=== PATIENT | male | born 1960 | race Two or more races ===

== ENCOUNTER 2020-09-25 12:50 | Emergency (ER) | payer OTHER, SELFPAY ==
[2020-09-25 13:05] VITALS: BP 131/98; PULSE 100; RESP 18; TEMP 37.4; O2SAT 96; BMI 33.0
--- NOTE | 2020-09-25 13:11 | XR_ITS ---
EXAMINATION: XR LUMBOSACRAL SPINE CLINICAL INFORMATION: Low back pain COMPARISON: Radiographs lumbar spine 04/14/2017 TECHNIQUE: Three views of the lumbosacral spine. FINDINGS: There is normal lumbar segmentation with 5 nonrib-bearing lumbar vertebrae of normal height and normal lumbar lordosis. There is no interval vertebral compression, spondylolisthesis, destructive process. There are moderate degenerative disc changes again seen T12-L1 with disc narrowing and endplate sclerosis and vertebral spurring. There is borderline disc narrowing L4-L5 and probable mild facet degeneration lumbosacral junction. The SI joints and visualized sacrum are unremarkable. XR/XR lumbar spine 2-3V IMPRESSION: 1. Moderate degenerative disc changes T12-L1 similar to 2017. 2. Borderline disc narrowing L4-L5. Probable mild facet degeneration L5-S1.
--- NOTE | 2020-09-25 14:09 | ED_ITS ---
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 Pain is described as aching like with aggravating factors including movement and certain positions with alleviating factors including rest and immobilization. He denies any GI symptoms. No fever. No abdominal pain. No chest pain or shortness of breath. No headache, neck pain, fever or chills. MD elicited complaint: back pain Pertinent past history: prior back pain Onset (ago): day(s) Severity: mild Similar Symptoms Previously: Yes Quality: aching Location: right lower back Radiation: none Exacerbating factors: movement Relieving factors: immobilization Associated symptoms: denies other symptoms Treatments prior to arrival: cold therapy Work related injury: No Related Data Previous Rx's Medication Instructions Recorded amoxicillin 875 mg-potassium 1 tab PO BID #20 tab 07/28/20 clavulanate 125 mg tablet cyclobenzaprine 5 mg PO TID PRN #20 tab 09/25/20 ibuprofen 800 mg PO Q8H PRN #30 tab 09/25/20 lidocaine 1 patch TOPICAL Q24H PRN 7 Days 09/25/20 #10 ea Allergies Allergy/AdvReac Type Severity Reaction Status Date / Time No Known Allergies Allergy Verified 07/28/20 09:51 [No Known Allergies*] none Allergy Unknown unknown Uncoded 07/28/20 09:51 Review of Systems Review of Systems: Constitutional: No Weight loss, No Fever, No Chills, No Night Sweats, No Fatigue, No Malaise ENT/Mouth: No Nasal Congestion, No Sinus Pain, No Hoarseness, No sore throat, No Rhinorrhea, No Swallowing Difficulty Eyes: No Eye Pain, No Swelling, No Redness, No Foreign Body, No Discharge, No Vision Changes Cardiovascular: No Chest Pain, No SOB, No Dyspnea on Exertion, No Orthopnea, No Edema, No Palpitations Respiratory: No Cough, No Sputum, No Wheezing, No Dyspnea Gastrointestinal: No Nausea, No Vomiting, No Diarrhea, No Constipation, No abdominal Pain, No Hematochezia, No Melena Genitourinary: no irregular bleeding, No Dysuria, No Urinary Frequency, No Hematuria, No Urinary Incontinence, No Urgency, No Flank Pain Musculoskeletal: as noted in HPI Skin: No Skin Lesions, No rash Neuro: No Weakness, No Numbness, No Paresthesias, No Loss of Consciousness, No Dizziness, No Headache Psych: No Social Issues Heme/Lymph: No Bruising, No Bleeding,No Lymphadenopathy Endocrine: No Polyuria, No Polydipsia, No Temperature Intolerance [facility] Social History Social History Advance Directives: No Advance Directives Information Provided: No Physical Exam Vital Signs: Vital Signs: Last Vital Signs Temp 99.3 F 09/25/20 13:05 Pulse 100 09/25/20 13:05 Resp 18 09/25/20 13:05 BP 131/98 H 09/25/20 13:05 Pulse Ox 96 09/25/20 13:05 Body Mass Index 33.0 Reviewed Const: General: cooperative and healthy appearing; No acute distress or intoxicated appearing Nutritional Appearance: average body habitus Orientation/consciousness: patient oriented x3 HENMT: Head: Yes normal to inspection Ears: hearing grossly normal bilaterally Eyes: General: appearance normal, both eyes and all related structures Visual Umaña: normal visual umaña by confrontation Neck: Neck: Yes normal visual inspection, No positive Brudzinski's sign, No positive Kernig's sign and No tender Thyroid: Thyroid normal Chest: Chest palpation & inspection: normal inspection of the chest Resp: Effort & Inspection: normal respiratory effort Auscultation: clear to auscultation bilaterally Cardio: Jugular venous distension: no JVD Rate: regular rate Rhythm: regular rhythm GI: Inspection: Yes normal to inspection Percussion: Yes normal to percussion Auscultation: normal bowel sounds : General: Yes no CVA tenderness Back/Spine/Pelvis: Other: Mild tender palpation over the right lower paraspinous muscle region where his pain is elicited with palpation, movement. Negative leg lift Neurovascularly intact Strength within normal limits. Back: no CVA tenderness Skin: General skin exam: no rashes or lesions noted Neuro: General: patient oriented x3 Extrem: General: Yes normal to inspection Course Course Course Narrative: AP of acute on chronic low back pain exam more consistent with strain type pain in the paraspinous muscle no midline to palpation. X-ray done per patient request my suspicions for acute osseous/ infectious/intra- abdominal pathology is low. X-ray findings findings of moderate degenerative disc disease in the T12-L1 with similar to 2017 There is some borderline disc narrowing at L4-L5 with probable mild facet degeneration of the L5-S1. Findings reviewed with patient. He is out of bed ambulatory steady gait. No low back pain red flags. Will start on short course of NSAIDs/muscle relaxants and encouraged for follow-up with his primary care doctor. If pain continues in the future any concerns advanced imaging such as MRI can be considered. MDM - Back Pain/Injury Differential Diagnosis Differential diagnosis: Likely strain of lumbar region; Unlikely lumbar radiculopathy, sciatica, renal colic, pyelonephritis, thoracic back pain, AAA and discitis Medical Records Attestation: I reviewed the patient's medical records. Lab Data Attestation: I reviewed the patient's lab results. Imaging Data [place] xray: Radiologist's impression: [address] [address] XRay Report Signed Patient: Jose G BartonMR#: [id number] : 2Acct:[id number] Age/Sex: 60 / MADM Date: 09/25/20 Loc: .ED Attending Dr: Ordering Physician: Roman Patel NP Date of Service: 09/25/20 Procedure(s): XR lumbar spine 2-3V Accession Number(s): [id number] cc: Roman Patel NP~ EXAMINATION: XR LUMBOSACRAL SPINE CLINICAL INFORMATION: Low back pain COMPARISON: Radiographs lumbar spine 04/14/2017 TECHNIQUE: Three views of the lumbosacral spine. FINDINGS: There is normal lumbar segmentation with 5 nonrib-bearing lumbar vertebrae of normal height and normal lumbar lordosis. There is no interval vertebral compression, spondylolisthesis, destructive process. There are moderate degenerative disc changes again seen T12-L1 with disc narrowing and endplate sclerosis and vertebral spurring. There is borderline disc narrowing L4-L5 and probable mild facet degeneration lumbosacral junction. The SI joints and visualized sacrum are unremarkable. XR/XR lumbar spine 2-3V IMPRESSION: 1. Moderate degenerative disc changes T12-L1 similar to 2017. 2. Borderline disc narrowing L4-L5. Probable mild facet degeneration L5-S1. Dictated By:DAKOTA JASON MD Signed By:<Electronically signed by DAKOTA JASON MD in OV>09/25/20 1330 DD/ 1311 TD/TT: Reroller Hand: ZION Discharge Plan Discharge Clinical Impression: Strain of lumbar region Qualifiers: Encounter type: initial encounter Qualified Code(s): S39.012A - Strain of muscle, fascia and tendon of lower back, initial encounter Patient Disposition: Home, Self-Care Instructions: Low Back Strain (ED), Lower Back Exercises (ED) Prescriptions: New cyclobenzaprine 10 mg tablet 5 mg PO TID PRN (Reason: muscle spasm) Qty: 20 RF: 0 lidocaine 4 % adhesive patch,medicated 1 patch topical Q24H PRN (Reason: pain) 7 Days Qty: 10 RF: 0 ibuprofen 800 mg tablet 800 mg PO Q8H PRN (Reason: pain) Qty: 30 RF: 0 No Action amoxicillin-pot clavulanate [Augmentin] 875-125 mg tablet 1 tab PO BID Qty: 20 RF: 0 Referrals: Gilmar Jacobs MD [Primary Care Provider] - 1 week
== END 2020-09-25 14:48 | disposition home or self-care (01) ==
PROVIDERS: Emergency Provider Emergency Medicine; PCP Internal Medicine
DX: S39.012A Strain of muscle, fascia and tendon of lower back, initial encounter (principal); X58.XXXA Exposure to other specified factors, initial encounter; Y93.9 Activity, unspecified; Y92.9 Unspecified place or not applicable; Y99.9 Unspecified external cause status
CPT/HCPCS: 72100; 99283

== ENCOUNTER 2022-11-13 07:35 | Outpatient (REF) | payer OTHER, SELFPAY ==
--- NOTE | ~2022-11-13 | XR_ITS ---
EXAMINATION: XR KNEE, LEFT CLINICAL INFORMATION: Pain. COMPARISON: None TECHNIQUE: AP, lateral, tunnel, and sunrise views of the left knee. FINDINGS: Bony alignment and mineralization are normal. The lateral, medial and patellofemoral joint space compartments are well-maintained. There is minimal peripheral osteophyte formation of the medial and patellofemoral joint space compartments. No fracture, dislocation or joint effusion is seen. There is no foreign body. XR/XR knee LT 3V IMPRESSION: There is minimal osteoarthritic change of the medial and patellofemoral joint space compartments of the left knee. No fracture, dislocation or joint effusion is seen.
[2022-11-13 07:53] LABS: MANUAL DIFF FLAG NO
[2022-11-13 08:33] LABS: Basophils Absolute Auto 0.1 X10*3/uL (0.0-0.2); Basophils Percent Auto 1.2 % (0-2); Eosinophils Absolute Auto 0.1 X10*3/uL (0.0-0.4); Eosinophils Percent Auto 3.2 % (0-4); Hematocrit 41.2 % (42.0-52.0); Hemoglobin 13.3 g/dl (14.0-18.0); Imm Gran Abs Auto 0.01 X10*3/uL (0.00-0.03); Imm Gran Pct Auto 0.2 % (0.0-0.4); Lymphocytes Percent Auto 45.4 % (20-40); Mean Corpuscular HGB Conc 32.3 g/dl (31.0-36.0); Mean Corpuscular Volume 83.6 fL (80.0-98.0); Mean Platelet Volume 9.3 fL (9.4-12.4); Monocytes Absolute Auto 0.4 X10*3/uL (0.1-1.2); Monocytes Percent Auto 9.3 % (2-11); Neutrophils Absolute Auto 1.8 x10*3/uL (2.0-8.3); Neutrophils Percent Auto 40.7 % (45-73); Platelet Count 306 X10*3/uL (160-400); Red Blood Count 4.93 X10*6/uL (4.60-5.80); Red Cell Distribution Width 14.1 % (11.0-16.0); White Blood Count 4.3 X10*3/uL (4.8-10.8)
[2022-11-13 09:10] LABS: Alanine Aminotransferase 27 U/L (0-40); Albumin Level 4.3 g/dL (3.5-5.0); Alkaline Phosphatase 73 U/L (39-117); Anion Gap 11 (12-20); Aspartate Amino Transferase 21 U/L (5-37); Bilirubin Total 0.5 mg/dL (0.0-1.0); Blood Urea Nitrogen 21 mg/dL (9-16); Calcium 9.5 mg/dL (8.4-10.2); Carbon Dioxide 27 mmol/L (22-29); Chloride 106 mmol/L (96-108); Estimated Glomerular Filt Rate > 60; Glucose Fasting 94 mg/dL (60-99); Potassium 4.2 mmol/L (3.3-5.1); Sodium 140 mmol/L (135-145); Total Protein 7.1 g/dL (6.5-8.0)
== END 2022-11-13 07:36 | disposition home or self-care (01) ==
LOC: HO.XRAY 07:35
PROVIDERS: PCP Internal Medicine; Visit Provider Nurse Practitioner Family
DX: M25.562 Pain in left knee (principal); R42 Dizziness and giddiness
CPT/HCPCS: 36415; 73562; 80053; 85025

== ENCOUNTER 2023-02-23 07:51 | Emergency (ER) | payer OTHER, SELFPAY ==
--- NOTE | ~2023-02-23 | XR_ITS ---
EXAMINATION: XR CHEST CLINICAL INFORMATION: Chest pain. COMPARISON: 10/01/2009 chest radiographs. TECHNIQUE: 2 views of the chest were obtained. FINDINGS: No significant abnormality is noted involving the heart, lungs, mediastinum, bony thorax or soft tissues. XR/XR chest 2V IMPRESSION: No acute cardiopulmonary process.
[2023-02-23 07:59] VITALS: BP 146/78; PULSE 75; RESP 18; TEMP 37.1; O2SAT 98; BMI 31.9
--- NOTE | 2023-02-23 08:02 | ECG_ITS ---
Test Reason : cp Blood Pressure : / mmHG Vent. Rate : 074 BPM Atrial Rate : 074 BPM P-R Int : 188 ms QRS Dur : 112 ms QT Int : 374 ms P-R-T Axes : 034 032 053 degrees QTc Int : 415 ms Normal sinus rhythm Normal ECG When compared with ECG of 01-OCT-2009 16:37, No significant change was found Referred By: Generic ED Physician Electronically Signed By:ISAAC LEWIS MD
--- NOTE | 2023-02-23 08:33 | ED.CHESTPAIN ---
HPI - Chest Pain General Chief Complaint: Chest Pain Stated Complaint: chest pain, trouble breathing Time Seen by Provider: 02/23/23 08:24 Source: patient Mode of arrival: ambulatory Limitations: no limitations History of Present Illness HPI narrative: This is a 62-year-old male with a history of sleep apnea, arthritis who presents to the ER with complaints of left-sided chest pressure which began last night while at rest. The chest pressure is constant. It actually feels improved this morning. Patient initially had some associated shortness of breath but this is now resolved. He denies any recent coughs or colds. No associated dizziness, vomiting, abdominal pain, leg swelling or leg pain. Patient denies any recent travel. No history of DVT or PE. He does have some significant family history of coronary artery disease. He has no personal history of coronary artery disease. He reports increased stress over the last week as 1 of his brothers recently . MD complaint: chest pain Related Data Previous Rx's Medication Instructions Recorded meclizine 25 mg tablet 25 mg PO DAILY PRN motion sickness 11/10/22 #14 tabs nabumetone 500 mg tablet 500 mg PO BID PRN knee pain 30 02/14/23 days #60 tabs Allergies Allergy/AdvReac Type Severity Reaction Status Date / Time No Known Allergies Allergy Verified 02/14/23 16:57 [No Known Allergies*] none Allergy Unknown unknown Uncoded 02/14/23 16:57 Review of Systems Review of Systems: Yes all other systems are reviewed and are negative Constitutional: Constitutional: Reports no additional constitutional complaints, Denies body ache(s), Denies chills, Denies fever(s), Denies headache(s) and Denies weakness Eyes: Eyes: Reports no additional eye complaints and Denies change in vision ENT: Reports system reviewed and no additional complaints, except as documented, Denies dizziness, Denies headache(s), Denies nasal congestion, Denies nasal discharge and Denies neck pain Cardiovascular: Cardiovascular: Reports no additional cardiovascular complaints, Reports chest pain, Denies leg edema and Reports dyspnea Respiratory: Respiratory: Reports no additional respiratory complaints, Denies cough and Reports dyspnea Gastrointestinal: Gastrointestinal: Reports no additional gastrointestinal complaints, Denies abdominal pain, Denies diarrhea, Denies nausea and Denies vomiting Genitourinary: Genitourinary: Denies urinary incontinence Musculoskeletal: Musculoskeletal: Reports no additional musculoskeletal complaints, Denies back pain, Denies arthralgias, Denies joint swelling, Denies neck pain, Denies numbness and Denies tingling Integumentary/Breasts: Skin/Breast: Reports system reviewed and no additional complaints, except as docu and Denies rash Neurologic: Reports system reviewed and no additional complaints, except as documented, Denies Abnormal speech present, Denies dizziness, Denies headache(s), Denies numbness, Denies tingling and Denies weakness PMFSH Past Medical History Attestation statement: The following information was validated with the patient. Source: old records reviewed and nursing notes reviewed Medical History Hypertriglyceridemia Lumbar spondylosis Obesity (BMI 30-39.9) Obstructive sleep apnea Vitamin D deficiency Surgical History No pertinent past surgical history Family History Family History Father Diabetes mellitus Hypertension Mother Cancer Social History Social History Housing: House Alcohol intake: never Patient Tobacco Use Status: Former Tobacco user Quit Date: > 10 yrs ago Smoked in Last 30 Days: No e-Cigarette/Vaping Use: Never Used Use of substances other than those prescribed or required for medical reasons: No Advance Directives: No Advance Directives Information Provided: Yes service: No Current occupational status: employed Current occupational exposures/hazards: No Cognitive needs: No Hearing needs: No Vision needs: No Physical Exam Vital Signs: Vital Signs: Last Vital Signs Temp 98.0 F 02/23/23 10:08 Pulse 68 02/23/23 10:08 Resp 12 02/23/23 10:08 BP 115/73 02/23/23 10:08 Pulse Ox 98 02/23/23 07:59 O2 Del Method Room Air 02/23/23 07:59 BMI result Body Mass Index 31.9 Const: General: cooperative, healthy appearing, comfortable and no acute distress Orientation/consciousness: patient oriented x3 Limitations: no limitations HEENT: Head: Yes normal to inspection Ears: hearing grossly normal bilaterally General nose exam: Normal external nose present Face and sinus: Yes normal facial exam Mouth: Normal oral and palatal mucosa present Throat: Yes posterior oropharynx normal Eyes: General: appearance normal, both eyes and all related structures Pupils: Equal, round and reactive pupils present Neck: Neck: Yes normal visual inspection Chest: Chest palpation & inspection: normal inspection of the chest Resp: Effort & Inspection: normal respiratory effort Auscultation: clear to auscultation bilaterally Cardio: Rate: regular rate Rhythm: regular rhythm Peripheral pulses: Peripheral pulses 2+ throughout GI: Inspection: Yes normal to inspection Palpation (GI): Soft to palpation and nontender Auscultation: normal bowel sounds Back/Spine/Pelvis: Thoracic/Lumbar Spine: thoracic and lumbar spine normal to inspection Skin: General skin exam: no rashes or lesions noted Neuro: General: patient oriented x3, no focal motor deficits and normal sensation to monofilament Cranial nerves: Yes Equal, round and reactive pupils present Cognition (Neuro): normal cognition Speech: No Abnormal speech present Gait exam (Neuro): Normal gait present Motor exam (neuro): 5/5 motor strength present throughout Extrem: General: Yes normal to inspection, Yes no pedal edema and Yes no calf tenderness Course Course Course Narrative: Labs unremarkable. EKG shows no ischemic changes. Chest x-ray is negative for infection. Reviewed findings with patient. Recommend follow-up outpatient with primary care. Reviewed worrisome signs and symptoms of when to return to the emergency room. Comfortable plan for discharge home. Medical Decision Making Medical Decision Making [facility] Narrative: 62-year-old male with history of arthritis and sleep apnea presents to the ER with complaints of chest pressure which began last night while at rest with some associated shortness of breath which is less than this morning but has been constant. On arrival patient well-appearing Vital stable Nontoxic Will check EKG, labs, chest x-ray, COVID screen Differential Diagnosis Differential Diagnoses: The differential diagnosis associated with the presentation includes Consider PE, ACS, aortic dissection -less likely ACS, heart score 1, nonexertional symptoms with flat troponin and negative EKG with symptoms greater than 12 hours Admission/Observation Consideration of admission/observation: Escalation of care including admission/observation considered Heart score is 1 for age-patient can follow-up outpatient with primary. I do not feel that he needs to be inpatient for his chest pain. Lab Data [facility] Lab Attestation statement: I reviewed the patient's lab results. 02/23/23 08:42 02/23/23 08:42 Labs: Lab Results 02/23/23 02/23/23 02/23/23 Range/Units 08:42 08:42 08:42 WBC 4.5 L (4.8-10.8) X10*3/uL RBC 4.75 (4.60-5.80) X10*6/uL Hgb 12.9 L (14.0-18.0) g/dl Hct 40.0 L (42.0-52.0) % MCV 84.2 (80.0-98.0) fL MCH 27.2 (27.0-33.0) pg MCHC 32.3 (31.0-36.0) g/dl RDW 14.5 (11.0-16.0) % Plt Count 270 (160-400) X10*3/uL MPV 9.1 L (9.4-12.4) fL Immature Gran % (Auto) 0.2 (0.0-0.4) % Neut % (Auto) 49.4 (45-73) % Lymph % (Auto) 33.7 (20-40) % Hart % (Auto) 11.7 H (2-11) % Eos % (Auto) 3.7 (0-4) % Baso % (Auto) 1.3 (0-2) % Lymph # (Auto) 1.5 (1.2-4.9) X10*3/uL Hart # (Auto) 0.5 (0.1-1.2) X10*3/uL Eos # (Auto) 0.2 (0.0-0.4) X10*3/uL Baso # (Auto) 0.1 (0.0-0.2) X10*3/uL Abs Immat Gran (auto) 0.01 (0.00-0.03) X10*3/uL Absolute Neuts (auto) 2.2 (2.0-8.3) x10*3/uL Absolute Nucleated RBC 0.000 (0.0-0.012) X10*3/uL Nucleated RBC % (auto) 0.0 (0.0-0.2) /100WBC PT 10.4 (10.0-13.1) SEC INR 0.9 (0.9-1.1) D-Dimer High Sensitivty < 150 NG/ML Sodium 141 (135-145) mmol/L Potassium 4.1 (3.3-5.1) mmol/L Chloride 109 H (96-108) mmol/L Carbon Dioxide 25 (22-29) mmol/L Anion Gap 11 L (12-20) BUN 14 (9-16) mg/dL Creatinine 0.89 (0.5-1.4) mg/dL Estim Creat Clear Calc 98.8 Estimated GFR > 60 Random Glucose 103 (60-115) mg/dL Calcium 9.4 (8.4-10.2) mg/dL Magnesium 2.1 (1.6-2.6) mg/dL Total Bilirubin 0.5 (0.0-1.0) mg/dL Direct Bilirubin 0.1 (0.0-0.5) mg/dL AST 20 (5-37) U/L ALT 30 (0-40) U/L Alkaline Phosphatase 77 (39-117) U/L Troponin I High Sens (<3.5-35.0) ng/L B-Natriuretic Peptide (<100) pg/mL Total Protein 6.8 (6.5-8.0) g/dL Albumin 4.2 (3.5-5.0) g/dL COVID-19 ([facility]) (Negative) COVID-19 Clin Com 02/23/23 02/23/23 02/23/23 Range/Units 08:42 08:42 08:42 WBC (4.8-10.8) X10*3/uL RBC (4.60-5.80) X10*6/uL Hgb (14.0-18.0) g/dl Hct (42.0-52.0) % MCV (80.0-98.0) fL MCH (27.0-33.0) pg MCHC (31.0-36.0) g/dl RDW (11.0-16.0) % Plt Count (160-400) X10*3/uL MPV (9.4-12.4) fL Immature Gran % (Auto) (0.0-0.4) % Neut % (Auto) (45-73) % Lymph % (Auto) (20-40) % Hart % (Auto) (2-11) % Eos % (Auto) (0-4) % Baso % (Auto) (0-2) % Lymph # (Auto) (1.2-4.9) X10*3/uL Hart # (Auto) (0.1-1.2) X10*3/uL Eos # (Auto) (0.0-0.4) X10*3/uL Baso # (Auto) (0.0-0.2) X10*3/uL Abs Immat Gran (auto) (0.00-0.03) X10*3/uL Absolute Neuts (auto) (2.0-8.3) x10*3/uL Absolute Nucleated RBC (0.0-0.012) X10*3/uL Nucleated RBC % (auto) (0.0-0.2) /100WBC PT (10.0-13.1) SEC INR (0.9-1.1) D-Dimer High Sensitivty NG/ML Sodium (135-145) mmol/L Potassium (3.3-5.1) mmol/L Chloride (96-108) mmol/L Carbon Dioxide (22-29) mmol/L Anion Gap (12-20) BUN (9-16) mg/dL Creatinine (0.5-1.4) mg/dL Estim Creat Clear Calc Estimated GFR Random Glucose (60-115) mg/dL Calcium (8.4-10.2) mg/dL Magnesium (1.6-2.6) mg/dL Total Bilirubin (0.0-1.0) mg/dL Direct Bilirubin (0.0-0.5) mg/dL AST (5-37) U/L ALT (0-40) U/L Alkaline Phosphatase (39-117) U/L Troponin I High Sens < 2.7 (<3.5-35.0) ng/L B-Natriuretic Peptide 35 (<100) pg/mL Total Protein (6.5-8.0) g/dL Albumin (3.5-5.0) g/dL COVID-19 ([facility]) Negative (Negative) COVID-19 Clin Com See Note Independent Interpretation I performed an independent interpretation of an: Plain X-Ray Interpretation: I independently reviewed the EKG which shows normal sinus rhythm with a rate of 74, normal ME, normal QRS, normal QT I independetely reviewed x-ray and agree with radiologist's report Radiology Impression Discussion of test interpretation with radiology: I have reviewed the radiologist's reading. Radiologist Impression: [address] [address] XRay Report Signed Patient: Jose G Barton MR#: [id number] : 1960 Acct:[id number] Age/Sex: 62 / M ADM Date: 02/23/23 Loc: HO.ED Attending Dr: Ordering Physician: Ghazal Evangelista NP Date of Service: 02/23/23 Procedure(s): XR chest 2V Accession Number(s): [id number] cc: Ghazal Evangelista NP~ EXAMINATION: XR CHEST CLINICAL INFORMATION: Chest pain. COMPARISON: 10/01/2009 chest radiographs. TECHNIQUE: 2 views of the chest were obtained. FINDINGS: No significant abnormality is noted involving the heart, lungs, mediastinum, bony thorax or soft tissues. XR/XR chest 2V IMPRESSION: No acute cardiopulmonary process. Discharge Plan Discharge Clinical Impression: Chest pain Patient Disposition: Home, Self-Care Instructions: Chest Pain (DC) Additional Instructions: Your lab work, EKG and x-ray are all reassuring Your COVID test is negative Please follow-up with your primary care doctor as he might need additional testing done outpatient Please return for any worsening symptoms Prescriptions: No Action meclizine 25 mg tablet 25 mg PO DAILY PRN (Reason: motion sickness) Qty: 14 0RF nabumetone 500 mg tablet 500 mg PO BID PRN (Reason: knee pain) 30 Days Qty: 60 0RF Referrals: Gilmar Jacobs MD [Primary Care Provider] - 1 week Stand Alone Forms: Work/School Release Interventions: ED Discharge Assessment Last Done: 02/23/23 10:14 Discharge Date/Time: 02/23/23 10:14
[2023-02-23 08:46] LABS: MANUAL DIFF FLAG NO
[2023-02-23 08:55] LABS: Basophils Absolute Auto 0.1 X10*3/uL (0.0-0.2); Basophils Percent Auto 1.3 % (0-2); Eosinophils Absolute Auto 0.2 X10*3/uL (0.0-0.4); Eosinophils Percent Auto 3.7 % (0-4); Hemoglobin 12.9 g/dl (14.0-18.0); INTERNATIONAL NORM RATIO 0.9 (0.9-1.1); Imm Gran Abs Auto 0.01 X10*3/uL (0.00-0.03); Imm Gran Pct Auto 0.2 % (0.0-0.4); Lymphocytes Absolute Auto 1.5 X10*3/uL (1.2-4.9); Lymphocytes Percent Auto 33.7 % (20-40); Mean Corpuscular HGB Conc 32.3 g/dl (31.0-36.0); Mean Corpuscular Hemoglobin 27.2 pg (27.0-33.0); Mean Corpuscular Volume 84.2 fL (80.0-98.0); Mean Platelet Volume 9.1 fL (9.4-12.4); Monocytes Absolute Auto 0.5 X10*3/uL (0.1-1.2); Monocytes Percent Auto 11.7 % (2-11); Neutrophils Absolute Auto 2.2 x10*3/uL (2.0-8.3); Neutrophils Percent Auto 49.4 % (45-73); Platelet Count 270 X10*3/uL (160-400); Prothrombin Time 10.4 SEC (10.0-13.1); Red Blood Count 4.75 X10*6/uL (4.60-5.80); Red Cell Distribution Width 14.5 % (11.0-16.0); White Blood Count 4.5 X10*3/uL (4.8-10.8)
[2023-02-23 09:07] LABS: Alanine Aminotransferase 30 U/L (0-40); Albumin Level 4.2 g/dL (3.5-5.0); Alkaline Phosphatase 77 U/L (39-117); Anion Gap 11 (12-20); Aspartate Amino Transferase 20 U/L (5-37); Bilirubin Direct 0.1 mg/dL (0.0-0.5); Bilirubin Total 0.5 mg/dL (0.0-1.0); Blood Urea Nitrogen 14 mg/dL (9-16); Calcium 9.4 mg/dL (8.4-10.2); Carbon Dioxide 25 mmol/L (22-29); Chloride 109 mmol/L (96-108); Creatinine Clr Calc Pharmacy 98.8; Estimated Glomerular Filt Rate > 60; Glucose Random 103 mg/dL (60-115); Magnesium 2.1 mg/dL (1.6-2.6); Potassium 4.1 mmol/L (3.3-5.1); Sodium 141 mmol/L (135-145); Total Protein 6.8 g/dL (6.5-8.0)
[2023-02-23 09:11] LABS: B Type Natriuretic Peptide 35 pg/mL (<100)
[2023-02-23 09:12] LABS: COVID-19 Test Negative (Negative); IDNOW Serial# 08D9AD1C
[2023-02-23 09:17] LABS: Troponin-I High Sensitivity < 2.7 ng/L (<3.5-35.0)
[2023-02-23 09:42] VITALS: PULSE 65
[2023-02-23 09:53] LABS: D Dimer High Sensitivity < 150 NG/ML
[2023-02-23 10:08] VITALS: BP 115/73; PULSE 68; RESP 12; TEMP 36.7
== END 2023-02-23 10:14 | disposition home or self-care (01) ==
PROVIDERS: Nurse Practitioner Family; Emergency Provider Student in an Organized Health Care Education/Training Program; PCP Internal Medicine
DX: R07.9 Chest pain, unspecified (principal); R06.02 Shortness of breath; Z20.822 Contact with and (suspected) exposure to COVID-19
CPT/HCPCS: 71046; 80048; 80076; 83735; 83880; 84484; 85025; 85379; 85610; 87635; 93005; 99284; 99285

== ENCOUNTER 2023-03-12 06:55 | Outpatient (REF) | payer OTHER, SELFPAY ==
[2023-03-12 08:02] LABS: Alanine Aminotransferase 40 U/L (0-40); Albumin Level 3.9 g/dL (3.5-5.0); Alkaline Phosphatase 67 U/L (39-117); Anion Gap 10 (12-20); Aspartate Amino Transferase 26 U/L (5-37); Bilirubin Total 0.4 mg/dL (0.0-1.0); Blood Urea Nitrogen 21 mg/dL (9-16); Carbon Dioxide 28 mmol/L (22-29); Chloride 108 mmol/L (96-108); Cholesterol 200 mg/dL; Estimated Glomerular Filt Rate > 60; Glucose Fasting 98 mg/dL (60-99); HDL Cholesterol 28 mg/dL; LDL Cholesterol Calculated 147 mg/dl; Potassium 4.2 mmol/L (3.3-5.1); Sodium 142 mmol/L (135-145); Total Protein 6.7 g/dL (6.5-8.0); Triglycerides 129 mg/dL
[2023-03-12 08:21] LABS: Appearance Urine Clear; Color Urine Yellow; Glucose Urine UA Negative (Negative); Leukocyte Esterase Urine Small (1+) (Negative); Nitrite Urine Negative (Negative); Specific Gravity - Urine >= 1.030 (1.005-1.025); UMIC TRIGGER UACC YES; Urine Blood Trace (Negative); Urine Ketones Negative (Negative); Urine Protein 30 (1+) mg/dL (Neg-Trace)
[2023-03-12 08:24] LABS: Bacteria Urine None Seen (None Seen); Hyaline Casts Urine 0-2 /LPF (0-2); UACC Culture Trigger YES; WBC Urine 21-50 /HPF (0-5)
== END 2023-03-12 06:56 | disposition home or self-care (01) ==
LOC: HO.LAB 06:55
PROVIDERS: PCP Internal Medicine; Visit Provider Internal Medicine
DX: E78.00 Pure hypercholesterolemia, unspecified (principal); R39.9 Unspecified symptoms and signs involving the genitourinary system
CPT/HCPCS: 36415; 80053; 80061; 81001; 87086

== ENCOUNTER 2023-03-24 06:15 | Outpatient (REF) | payer OTHER, SELFPAY | END 2023-03-24 06:16 | disposition home or self-care (01) | LOC: HO.HOSX 06:15 | PROVIDERS: Visit Provider Physician Assistant | DX: Z13.89 Encounter for screening for other disorder (principal) ==

== ENCOUNTER 2023-03-28 15:13 | Outpatient (REF) | payer OTHER, SELFPAY ==
[2023-03-28 17:38] LABS: Iron 48 mcg/dL (45-160); Percent Iron Saturation 21 % (15-50); Total Iron Binding Capacity 233 mcg/dL (228-428); Unsaturated Iron Binding 185 ug/dL
[2023-03-28 18:01] LABS: Ferritin 274 ng/mL (20-250); Folate 18.6 ng/mL (> or = 4.0); Vitamin B12 816 pg/mL (200-900)
[2023-03-29 22:02] LABS: Immunoglobulin A 221 mg/dL (47-310)
[2023-03-30 13:19] LABS: Transglutaminase IgA <1.0 U/mL
== END 2023-03-28 15:14 | disposition home or self-care (01) ==
LOC: HO.LAB 15:13
PROVIDERS: PCP Internal Medicine; Visit Provider Internal Medicine
DX: D64.9 Anemia, unspecified (principal); Z86.010 Personal history of colon polyps
CPT/HCPCS: 36415; 82607; 82728; 82746; 82784; 83540; 86364

== ENCOUNTER 2023-04-29 06:15 | Outpatient (REF) | payer OTHER, SELFPAY | END 2023-04-29 06:16 | disposition home or self-care (01) | LOC: HO.HOSX 06:15 | PROVIDERS: Visit Provider Physician Assistant | DX: Z13.89 Encounter for screening for other disorder (principal) ==

== ENCOUNTER 2023-09-09 15:24 | Outpatient (AMB) | payer OTHER, SELFPAY ==
[2023-09-09 15:35] VITALS: BP 130/80; PULSE 74; O2SAT 95; BMI 32.9
--- NOTE | 2023-09-09 15:35 | MHC.PC.OV ---
Vital Signs 09/09/23 15:35 Height 5 ft 8 in Weight 216 lb 2 oz BMI 32.9 BP 130/80 Blood Pressure Location Lt brachial Position Sitting Pulse 74 Pulse Source Pulse Oximeter Pulse Oximetry (%) 95 Oxygen Delivery Method Room Air Intake Visit Reasons: OA left knee, hyperlipidemia Machine Turner Required: No Accompanied by: Self / Same As Patient Allergies No Known Allergies [No Known Allergies*] Allergy (Verified 09/09/23 16:19) Medication List - Last Reconciled 09/09/23 by Gilmar Jacobs MD meclizine 25 mg PO DAILY PRN nabumetone 500 mg PO BID PRN 30 days peg 3350-electrolytes [id number] -5.86 gram (Golytely) 240 mL PO Q10M Tobacco use date assessed: 09/09/23 Dental Screening Dental Screen Date: 09/09/23 Did you have a dental visit in the last 12 months?: Yes Did you have a dental problem in the last 6 months where you did not have access to dental care?: No Was dental information given to patient?: Patient has dentist HPI OA left knee, hyperlipidemia HPI Details Patient comes in today for his follow up visit States that he is still experiencing increased pain over his left knee (has OA) and still has chronic low back pain and would like to have his handicap placard application form renewed States that they only approved him for a 6 months' period on his last application Adds that he also recently noted a swelling near the base of his right big toe, which tends to hurt slightly at times States that he has also been experiencing some sore throat and nasal congestion and on and off cough for the past few days - coughs up minimal whitish to yellowish phlegm at times He denies any headaches or dizziness Denies any chest pains, no increased SOB No nausea/vomiting, no abdominal pain No change in bowel habits noted Had his follow up labs done in back February 2023 - to discuss his results Would also like to get his flu shot today [facility] Medical History (Updated 09/11/23 @ 17:59 by Gilmar Jacobs MD) Mixed hyperlipidemia Obesity (BMI 30-39.9) Vitamin D deficiency Obstructive sleep apnea Lumbar spondylosis Hypertriglyceridemia Surgical History Hx of colonoscopy No pertinent past surgical history Family History Father Diabetes mellitus Hypertension Mother Cancer Social History Housing: House Alcohol intake: never Patient Tobacco Use Status: Former Tobacco user Quit Date: > 10 yrs ago e-Cigarette/Vaping Use: Never Used service: No Current occupational status: employed Current occupational exposures/hazards: No Cognitive needs: No Hearing needs: No Vision needs: No Questionnaire PHQ-9 Over the last 2 weeks, how often have you been bothered by any of the following problems? 1. Little interest or pleasure in doing things: not at all 2. Feeling down, depressed, or hopeless: not at all 3. Trouble falling or staying asleep, or sleeping too much: not at all 4. Feeling tired or having little energy: not at all 5. Poor appetite or overeating: not at all 6. Feeling bad about yourself - or that you are a failure or have let yourself or your family down: not at all 7. Trouble concentrating on things, such as reading the newspaper or watching television: not at all 8. Moving or speaking so slowly that other people could have noticed. Or the opposite - being so fidgety or restless that you have been moving around a lot more than usual: not at all 9. Thoughts that you would be better off or of hurting yourself in some way: not at all Total score: 0 Depression Screening Interpretation: Negative Depression Screening Done: Yes 81514 - PHQ-9 Billing: Yes Source: Developed by Drs. Angus Hardy, Johanna Boswell, Neto Bear and colleagues, with an educational jacques from [employer]. Thrive Questionnaire Date Thrive assessed: 09/09/23 I am a: Patient What is your living situation today?: I have a steady place to live Within the past 12 months, did the food you bought not last and you didn't have the money to get more?: Never true Within the past 12 months, did you worry whether your food would run out before you got money to buy more?: Never true Do you have trouble paying for medicines?: No Do you have trouble getting transportation to medical appointments?: No Do you have trouble paying your heating and electricity bill?: No Do you have trouble taking care of your child, family member or friend?: No Do you have trouble with day-to-day activities such as bathing, preparing meals, shopping, managing finances, etc.?: No Are you currently unemployed and looking for a job?: No Are you interested in more education?: No Please select the resources that you would like help with: None Currently or been in a relationship where the following occur: no concerns reported AUDIT C Alcohol Use Questionnaire (AUDIT-C) 1. How often do you have a drink containing alcohol?: Never 2. How many drinks containing alcohol do you have on a typical day when you are drinking?: 1 or 2 3. How often do you have six or more drinks on one occasion?: Never Total Score: 0 Score Reviewed/Action Taken: Yes RADHA-7 AMB Questionnaire RADHA-7 Date RADHA - 7 assessed: 09/09/23 Feeling nervous, anxious, or on edge: 0 = Not at all Not being able to stop or control worryin = Not at all Worrying too much about different things: 0 = Not at all Trouble relaxin = Not at all Being so restless that it is hard to sit still: 0 = Not at all Becoming easily annoyed or irritable: 0 = Not at all Feeling afraid as if something awful might happen: 0 = Not at all Total RADHA-7 score (0-4 normal; 5-9 mild; 10-14 moderate; 15-21 severe): 0 Source: Developed by Drs. Angus Hardy, Johanna Boswell, Neto Bear and colleagues, with an educational jacques from [employer]. RADHA-7 Assessment Billing RADHA-7 Assessment Tool: RADHA-7 Assessment 86358 Review of Systems Const Denies chills, Denies fatigue, Denies fever(s) and Denies headache(s) ENT Denies dysphagia, Denies dizziness, Denies otalgia, Denies headache(s), Reports nasal congestion, Denies odynophagia, Denies sinus pain and Reports sore throat (mild) Card Denies chest pain, Denies palpitations and Denies dyspnea Resp Reports chest congestion (mild), Reports cough (on and off - coughs up whitish to yellowish phlegm at times), Denies pain on inspiration and Denies dyspnea GI Denies abdominal pain, Denies constipation, Denies dysphagia, Denies heartburn, Denies diarrhea, Denies nausea, Denies odynophagia and Denies vomiting Denies dysuria, Denies nocturia and Denies urinary frequency Musc Details: (+) swelling over the right foot, at the base of the big toe Reports back pain (over the lower back - chronic) and Reports arthralgias (over the left knee) Skin/Breast Denies rash Neuro Denies dizziness and Denies headache(s) Endo Denies fatigue and Denies palpitations Physical exam (Primary Care) Vital Signs: Last Vital Signs Pulse 74 09/09/23 15:35 BP 130/80 09/09/23 15:35 Pulse Ox 95 09/09/23 15:35 Oxygen Delivery Method Room Air 09/09/23 15:35 BMI result Body Mass Index 32.9 Tobacco/Smoking Status: Tobacco use Status Tobacco use date assessed 09/09/23 09/09/23 15:42 Patient Tobacco Use Status Former Tobacco user 09/09/23 15:42 e-Cigarette/Vaping Use Never Used 09/09/23 15:42 PHQ-9: PHQ-9 Score PHQ-9: Total score 0 09/09/23 16:24 Depression Screening Interpretation: Negative Thrive Assessment: Date of Thrive Assessment Date Thrive assessed 09/09/23 09/09/23 15:42 Currently or been in a relationship where the following occur: no concerns reported Const General: no acute distress and alert HENMT Ears: TM's normal bilaterally and EAC's normal Throat: Yes tonsils normal (no TP congestion) and Yes posterior oropharynx abnormal ((+) mild erythema of the posterior pharynx) Neck Neck: Yes no lymphadenopathy and Yes supple Resp Auscultation: no rales, rhonchi (occasional) throughout and no wheezes Cardio Rate: regular rate Rhythm: regular rhythm Heart sounds: no murmurs GI Palpation (GI): Soft to palpation and nontender Auscultation: normal bowel sounds Back/Spine/Pelvis Thoracic/Lumbar Spine: lumbar spinal tenderness Skin Rashes: no rashes Extrem General: Yes no clubbing, cyanosis or edema Left lower extremity: knee Details: tenderness Location: of the medial joint line; no swelling Office Procedures Flu Questionnaire Does the patient have a severe egg allergy?: No Does the patient have severe life threatening allergies?: No Does the patient have a fever or illness today?: No Has the patient ever had Guillain-[place] Syndrome?: No Has the patient ever had any past reaction to a flu shot?: No Immunizations flu vacc [id number] 6mos up(PF) 60 mcg(15 mcgx4)/0.5 mL IM syringe Performing Provider: Gilmar Jacobs MD Performing Location: [facility] Administered by: Nhan Simmons on 09/09/23 16:29 Dose Route Admin Location Dispensed Lot Number Expiration Date NDC Riveting Machine Operator 0.5 mL IM Left Deltoid 0.5 mL [id number] 04/22/24 40501-323-12 Hymite VIS Given Date VIS Provided VIS Publication Date 09/09/23 Single Vaccine 21 Eligibility Eligibility Date Funding Source Not [facility] Eligible 09/09/23 Private Results Reviewed Results Reviewed: Laboratory Tests 02/23/23 02/23/23 02/23/23 08:42 08:42 08:42 WBC 4.5 L Hgb 12.9 L Hct 40.0 L Plt Count Sodium Potassium Creatinine Estimated GFR Fasting Glucose Calcium AST ALT B-Natriuretic Peptide 35 Triglycerides Cholesterol LDL Cholesterol, Calc HDL Cholesterol Urine pH Ur Specific [place] Urine Protein Urine Glucose (UA) Urine Blood 02/23/23 03/12/23 03/12/23 08:42 07:00 07:00 WBC Hgb Hct Plt Count 270 Sodium Potassium Creatinine Estimated GFR Fasting Glucose Calcium AST ALT B-Natriuretic Peptide Triglycerides Cholesterol LDL Cholesterol, Calc HDL Cholesterol Urine pH 6.0 Ur Specific [place] >= 1.030 H Urine Protein 30 (1+) H Urine Glucose (UA) Negative Urine Blood Trace H 03/12/23 03/12/23 03/12/23 07:03 07:03 07:03 WBC Hgb Hct Plt Count Sodium 142 Potassium 4.2 Creatinine 0.79 Estimated GFR > 60 Fasting Glucose 98 Calcium 9.0 AST 26 ALT 40 B-Natriuretic Peptide Triglycerides Cholesterol LDL Cholesterol, Calc HDL Cholesterol Urine pH Ur Specific [place] Urine Protein Urine Glucose (UA) Urine Blood 03/12/23 03/12/23 07:03 07:03 WBC Hgb Hct Plt Count Sodium Potassium Creatinine Estimated GFR Fasting Glucose Calcium AST ALT B-Natriuretic Peptide Triglycerides 129 Cholesterol 200 LDL Cholesterol, Calc 147 HDL Cholesterol 28 Urine pH Ur Specific [place] Urine Protein Urine Glucose (UA) Urine Blood Assessment and Plan Assessment & Plan (1) Mixed hyperlipidemia: Code(s): E78.2 - Mixed hyperlipidemia Plan: Results of his labs done back in February 2023 reviewed and discussed with patient - advised that his serum triglycerides back then have improved although his LDL cholesterol went up significantly Reinforced low cholesterol diet Will go ahead and start him on Atorvastatin 10 mg QD Will have patient recheck his labs and fasting lipids in 3 months for follow up (2) Primary osteoarthritis of left knee: Code(s): M17.12 - Unilateral primary osteoarthritis, left knee Plan: X-rays of the left knee done back in October 2022 revealed (+) minimal OA changes of the medial and patellofemoral joint space compartments; no fracture, dislocation or joint effusion is seen Continue Nabumetone 500 mg BID PRN with food for pain He has been referred to orthopedics for further evaluation and management - to follow up with orthopedics as scheduled (3) Obstructive sleep apnea: Code(s): G47.33 - Obstructive sleep apnea (adult) (pediatric) Plan: Continue using his CPAP device when sleeping at night daily (4) Vitamin D deficiency: Code(s): E55.9 - Vitamin D deficiency, unspecified Plan: Continue Vitamin D3 2000 units QD (5) Lumbar spondylosis: Code(s): M47.816 - Spondylosis without myelopathy or radiculopathy, lumbar region Plan: Reinforced activity and weight-lifting restrictions Lumbar spine x-rays last done on 09/25/2020 revealed (+) moderate degenerative disc changes at T12-L1 similar to 2017 and borderline disc narrowing at L4-L5 and probable mild facet degeneration at L5-S1 Will consider referring to pain management if his low back pain gets worse or progresses (6) Upper respiratory tract infection: Code(s): J06.9 - Acute upper respiratory infection, unspecified Qualifiers: URI type: unspecified URI Qualified Code(s): J06.9 - Acute upper respiratory infection, unspecified Plan: Will start patient empirically on Augmentin 875 mg BID x 7 days (7) Bunion, right foot: Code(s): M21.611 - Bunion of right foot Plan: Advised that the swelling on his right foot that he is referring to is a bunion Discussed consideration of referral to podiatry but advised that we should hold off and refer him only if his symptoms get worse and the bunion gets significantly bigger in size - advised that the bunion si still quite small at present and podiatry will likely recommend the same thing (8) Obesity (BMI 30-39.9): Code(s): E66.9 - Obesity, unspecified Plan: Reinforced diet/exercise as tolerated/lose weight Plan Flu vaccine given today Follow up in 3 months Orders: Orders Comprehensive [place]. Panel Fast 3 Months E78.00 - Pure hypercholesterolemia, unspecified Lipid Panel 3 Months E78.00 - Pure hypercholesterolemia, unspecified Influenza [id number] Immunization 09/09/23 Z23 - Encounter for immunization Medications: New atorvastatin 10 mg PO BEDTIME 30 days 30 tabs 3RF amoxicillin 875 mg PO BID 7 days 14 tabs 0RF Coding Level of Care Code Est Pt Level 4 (50251) Diagnoses Mixed hyperlipidemia E78.2 Primary osteoarthritis of left knee M17.12 Obstructive sleep apnea G47.33 Vitamin D deficiency E55.9 Lumbar spondylosis M47.816 Upper respiratory tract infection, unspecified type J06.9 URI type: unspecified URI Bunion, right foot M21.611 Obesity (BMI 30-39.9) E66.9 Additional Codes RADHA-7 Assessment Billing - RADHA-7 Assessment Tool: RADHA-7 Assessment 77197 ([id number])
== END 2023-09-09 16:33 | disposition home or self-care (01) ==
PROVIDERS: PCP Internal Medicine; Visit Provider Internal Medicine
DX: Z23 Encounter for immunization (principal)
CPT/HCPCS: 90471; 90686; 99214

== ENCOUNTER 2023-11-26 07:57 | Outpatient (REF) | payer OTHER, SELFPAY ==
[2023-11-26 10:04] LABS: Alanine Aminotransferase 44 U/L (0-40); Albumin Level 4.3 g/dL (3.5-5.0); Alkaline Phosphatase 70 U/L (39-117); Anion Gap 13 (12-20); Aspartate Amino Transferase 25 U/L (5-37); Bilirubin Total 0.6 mg/dL (0.0-1.0); Blood Urea Nitrogen 17 mg/dL (9-16); Calcium 9.7 mg/dL (8.4-10.2); Carbon Dioxide 26 mmol/L (22-29); Chloride 105 mmol/L (96-108); Cholesterol 181 mg/dL (<200); Estimated Glomerular Filt Rate > 60; Glucose Fasting 92 mg/dL (60-99); HDL Cholesterol 38 mg/dL (>40); LDL Cholesterol Calculated 83 mg/dL (<100); Potassium 4.2 mmol/L (3.3-5.1); Sodium 140 mmol/L (135-145); Total Protein 7.4 g/dL (6.5-8.0); Triglycerides 301 mg/dL (<150)
== END 2023-11-26 07:58 | disposition home or self-care (01) ==
LOC: HO.LAB 07:57
PROVIDERS: PCP Internal Medicine; Visit Provider Internal Medicine
DX: E78.00 Pure hypercholesterolemia, unspecified (principal)
CPT/HCPCS: 36415; 80053; 80061

== ENCOUNTER 2023-12-12 14:28 | Outpatient (AMB) | payer OTHER, SELFPAY ==
[2023-12-12 14:33] VITALS: BP 134/72; PULSE 72; O2SAT 94; BMI 34.6
--- NOTE | 2023-12-12 14:33 | MHC.PC.OV ---
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 Required: No Accompanied by: Self / Same As Patient Allergies No Known Allergies [No Known Allergies*] Allergy (Verified 12/12/23 15:56) Medication List - Last Reconciled 12/12/23 by Gilmar Jacobs MD atorvastatin 10 mg PO BEDTIME 30 days meclizine 25 mg PO DAILY PRN nabumetone 500 mg PO BID PRN 30 days peg 3350-electrolytes 236-22.74-6.74 -5.86 gram (Golytely) 240 mL PO Q10M Tobacco use date assessed: 12/12/23 Dental Screening Dental Screen Date: 12/12/23 Did you have a dental visit in the last 12 months?: Yes Did you have a dental problem in the last 6 months where you did not have access to dental care?: No Was dental information given to patient?: Patient has dentist HPI 3 month f/u HPI Details Patient comes in today for his follow up visit States that he feels okay but reports (+) blood often lately (especially from his right nostril) when he blows his nose - is concerned that he may be having a sinus infection again States that he has tried using some OTC saline nasal spray upon the recommendation of his local pharmacist but feels that it is not really helping much He denies any fever or sore throat Denies any headaches or dizziness Denies any chest pains, no SOB No nausea/vomiting, no abdominal pain No change in bowel habits noted Had his follow up labs done a couple of weeks ago - to discuss his results Adds that he was supposed to have his screening colonoscopy done last May 2023 but he ended up having to cancel his procedure and has not yet been able to get this rescheduled - does not know if he will need a new referral for this [facility] Medical History (Updated 12/12/23 @ 16:15 by Gilmar Jacobs MD) Mixed hyperlipidemia Obesity (BMI 30-39.9) Vitamin D deficiency Obstructive sleep apnea Lumbar spondylosis Hypertriglyceridemia Surgical History (Updated 12/12/23 @ 15:58 by Gilmar Jacobs MD) Hx of colonoscopy Family History Father Diabetes mellitus Hypertension Mother Cancer Social History Housing: House Alcohol intake: never Patient Tobacco Use Status: Former Tobacco user Quit Date: > 10 yrs ago e-Cigarette/Vaping Use: Never Used service: No Current occupational status: employed Current occupational exposures/hazards: No Cognitive needs: No Hearing needs: No Vision needs: No Questionnaire PHQ-9 Over the last 2 weeks, how often have you been bothered by any of the following problems? 1. Little interest or pleasure in doing things: not at all 2. Feeling down, depressed, or hopeless: not at all 3. Trouble falling or staying asleep, or sleeping too much: not at all 4. Feeling tired or having little energy: not at all 5. Poor appetite or overeating: not at all 6. Feeling bad about yourself - or that you are a failure or have let yourself or your family down: not at all 7. Trouble concentrating on things, such as reading the newspaper or watching television: not at all 8. Moving or speaking so slowly that other people could have noticed. Or the opposite - being so fidgety or restless that you have been moving around a lot more than usual: not at all 9. Thoughts that you would be better off or of hurting yourself in some way: not at all Total score: 0 Depression Screening Interpretation: Negative Depression Screening Done: Yes 17894 - PHQ-9 Billing: Yes Source: Developed by Drs. Angus Hardy, Johanna Boswell, Neto Bear and colleagues, with an educational jacques from [employer]. Thrive Questionnaire Date Thrive assessed: 12/12/23 I am a: Patient What is your living situation today?: I have a steady place to live Within the past 12 months, did the food you bought not last and you didn't have the money to get more?: Never true Within the past 12 months, did you worry whether your food would run out before you got money to buy more?: Never true Do you have trouble paying for medicines?: No Do you have trouble getting transportation to medical appointments?: No Do you have trouble paying your heating and electricity bill?: No Do you have trouble taking care of your child, family member or friend?: No Do you have trouble with day-to-day activities such as bathing, preparing meals, shopping, managing finances, etc.?: No Are you currently unemployed and looking for a job?: No Are you interested in more education?: No Please select the resources that you would like help with: None Currently or been in a relationship where the following occur: no concerns reported THRIVE Score: 0 AUDIT C Alcohol Use Questionnaire (AUDIT-C) 1. How often do you have a drink containing alcohol?: Never 2. How many drinks containing alcohol do you have on a typical day when you are drinking?: 1 or 2 3. How often do you have six or more drinks on one occasion?: Never Total Score: 0 Score Reviewed/Action Taken: Yes RADHA-7 AMB Questionnaire RADHA-7 Date RADHA - 7 assessed: 12/12/23 Feeling nervous, anxious, or on edge: 0 = Not at all Not being able to stop or control worryin = Not at all Worrying too much about different things: 0 = Not at all Trouble relaxin = Not at all Being so restless that it is hard to sit still: 0 = Not at all Becoming easily annoyed or irritable: 0 = Not at all Feeling afraid as if something awful might happen: 0 = Not at all Total RADHA-7 score (0-4 normal; 5-9 mild; 10-14 moderate; 15-21 severe): 0 Source: Developed by Drs. Angus Hardy, Johanna Boswell, Neto Bear and colleagues, with an educational jacques from [employer]. RADHA-7 Assessment Billing RADHA-7 Assessment Tool: RADHA-7 Assessment 46926 Review of Systems Const Denies chills, Denies fatigue, Denies fever(s) and Denies headache(s) ENT Denies dysphagia, Denies dizziness, Denies otalgia, Denies headache(s), Reports epistaxis (on and off lately, especially from the right nostril), Reports nasal congestion (on and off), Denies odynophagia, Denies sinus pain and Denies sore throat Card Denies chest pain, Denies palpitations and Denies dyspnea Resp Denies chest congestion, Denies cough, Denies pain on inspiration and Denies dyspnea GI Denies abdominal pain, Denies constipation, Denies dysphagia, Denies heartburn, Denies diarrhea, Denies nausea, Denies odynophagia and Denies vomiting Denies dysuria, Denies nocturia and Denies urinary frequency Musc Details: (+) swelling over the right foot, at the base of the big toe Reports back pain (over the lower back - chronic) and Denies arthralgias Skin/Breast Denies rash Neuro Denies dizziness and Denies headache(s) Endo Denies fatigue and Denies palpitations Physical exam (Primary Care) Vital Signs: Last Vital Signs Pulse 72 12/12/23 14:33 BP 134/72 12/12/23 14:33 Pulse Ox 94 12/12/23 14:33 Oxygen Delivery Method Room Air 12/12/23 14:33 BMI result Body Mass Index 34.6 Tobacco/Smoking Status: Tobacco use Status Tobacco use date assessed 12/12/23 12/12/23 14:35 Patient Tobacco Use Status Former Tobacco user 12/12/23 14:35 e-Cigarette/Vaping Use Never Used 12/12/23 14:35 PHQ-9: PHQ-9 Score PHQ-9: Total score 0 12/12/23 15:12 Depression Screening Interpretation: Negative Thrive Assessment: Date of Thrive Assessment Date Thrive assessed 12/12/23 12/12/23 14:35 Currently or been in a relationship where the following occur: no concerns reported Const General: no acute distress and alert HENMT Ears: TM's normal bilaterally and EAC's normal General nose exam: No nasal polyps present and No nasal discharge present Throat: Yes posterior oropharynx normal and Yes tonsils normal (no TP congestion) Neck Neck: Yes no lymphadenopathy and Yes supple Thyroid: Thyroid normal Resp Auscultation: clear to auscultation bilaterally, no rales and no wheezes Cardio Rate: regular rate Rhythm: regular rhythm Heart sounds: no murmurs GI Palpation (GI): Soft to palpation and nontender Auscultation: normal bowel sounds General: Yes no CVA tenderness Back/Spine/Pelvis Back: no CVA tenderness Thoracic/Lumbar Spine: lumbar spinal tenderness (mild) Skin Rashes: no rashes Extrem General: Yes no clubbing, cyanosis or edema Left lower extremity: knee Details: tenderness Location: of the medial joint line; no swelling Results Reviewed Results Reviewed: Laboratory Tests 11/26/23 08:25 Sodium 140 Potassium 4.2 Creatinine 0.85 Estimated GFR > 60 Fasting Glucose 92 Calcium 9.7 D AST 25 ALT 44 H Triglycerides 301 H Cholesterol 181 LDL Cholesterol, Calc 83 HDL Cholesterol 38 L Assessment and Plan Assessment & Plan (1) Mixed hyperlipidemia: Code(s): E78.2 - Mixed hyperlipidemia Plan: Results of his labs done a couple of weeks ago reviewed and discussed with patient - advised that his serum triglycerides have increased significantly from previous, most likely in relation to his recent weight gain, but his total and LDL cholesterol have both improved significantly from before Reinforced low cholesterol diet Continue Atorvastatin 10 mg QD Will have patient recheck his labs and fasting lipids in 3 months for follow up (2) Obstructive sleep apnea: Code(s): G47.33 - Obstructive sleep apnea (adult) (pediatric) Plan: Continue using his CPAP device when sleeping at night daily (3) Vitamin D deficiency: Code(s): E55.9 - Vitamin D deficiency, unspecified Plan: Continue Vitamin D3 2000 units QD (4) Epistaxis: Code(s): R04.0 - Epistaxis Plan: He is advised that his recent recurrent epistaxis is most likely a result of the dry air in the winter time but may also be partly due to allergies (indoor) He is advised to continue using his OTC Saline nasal spray QD Will start him as well on Budesonide 32 mcg nasal spray QD PRN (5) Primary osteoarthritis of left knee: Code(s): M17.12 - Unilateral primary osteoarthritis, left knee Plan: X-rays of the left knee done back in October 2022 revealed (+) minimal OA changes of the medial and patellofemoral joint space compartments; no fracture, dislocation or joint effusion is seen Continue Nabumetone 500 mg BID PRN with food for pain Follow up with orthopedics as scheduled (6) Lumbar spondylosis: Code(s): M47.816 - Spondylosis without myelopathy or radiculopathy, lumbar region Plan: Reinforced activity and weight-lifting restrictions Lumbar spine x-rays last done on 09/25/2020 revealed (+) moderate degenerative disc changes at T12-L1 similar to 2017 and borderline disc narrowing at L4-L5 and probable mild facet degeneration at L5-S1 Will consider referring to pain management if his low back pain gets worse or progresses (7) Obesity (BMI 30-39.9): Code(s): E66.9 - Obesity, unspecified Plan: Reinforced diet/exercise as tolerated/lose weight- patient has gained a lot of weight since his last visit although he is still at a loss as to how he would have gained this much weight as he states that he has been doing everything that he can to try to get his weight controlled better (8) Colon cancer screening: Code(s): Z12.11 - Encounter for screening for malignant neoplasm of colon Plan: Will refer him back to GI for screening colonoscopy - he had to cancel his colonoscopy scheduled for last May 2023 Plan Follow up in 3 months Orders: Orders Comprehensive [place]. Panel Fast 3 Months E78.00 - Pure hypercholesterolemia, unspecified Lipid Panel 3 Months E78.00 - Pure hypercholesterolemia, unspecified Complete Blood Count Auto Diff 3 Months D64.9 - Anemia, unspecified TSH reflex Free T4 3 Months E78.00 - Pure hypercholesterolemia, unspecified UA CC w/rflx Micro + Cult 3 Months R30.0 - Dysuria Referrals Gastroenterology Referral Z12.11 - Encounter for screening for malignant neoplasm of colon Medications: New budesonide 32 mcg/actuation administer into each nostril 1 spray intranasal QAM 8.43 mL 3RF Coding Level of Care Code Est Pt Level 4 (31266) Diagnoses Mixed hyperlipidemia E78.2 Obstructive sleep apnea G47.33 Vitamin D deficiency E55.9 Epistaxis R04.0 Primary osteoarthritis of left knee M17.12 Lumbar spondylosis M47.816 Obesity (BMI 30-39.9) E66.9 Colon cancer screening Z12.11 Additional Codes RADHA-7 Assessment Billing - RADHA-7 Assessment Tool: RADHA-7 Assessment 85271 ([id number])
== END 2023-12-12 16:05 | disposition home or self-care (01) ==
PROVIDERS: PCP Internal Medicine; Visit Provider Internal Medicine
DX: E78.2 Mixed hyperlipidemia (principal); G47.33 Obstructive sleep apnea (adult) (pediatric); E66.9 Obesity, unspecified; Z68.34 Body mass index [BMI] 34.0-34.9, adult; E55.9 Vitamin D deficiency, unspecified; R04.0 Epistaxis; M17.12 Unilateral primary osteoarthritis, left knee; M47.816 Spondylosis without myelopathy or radiculopathy, lumbar region; Z12.11 Encounter for screening for malignant neoplasm of colon
CPT/HCPCS: 99214

== ENCOUNTER 2024-01-13 14:49 | Outpatient (AMB) | payer OTHER, SELFPAY ==
--- NOTE | 2024-01-13 15:05 | A.OFFVIS_ITS ---
Intake Vital Signs 01/13/24 15:07 Height 5 ft 8 in Weight 224 lb 13.944 oz BMI 34.2 BP 137/71 Blood Pressure Location Lt brachial Position Sitting Pulse 70 Intake Visit Reasons: Rediscuss Colonoscopy Intake Note: Jose G presents in the office as a follow up. CC: here to discuss having colonoscopy Allergies No Known Allergies [No Known Allergies*] Allergy (Verified 01/13/24 15:07) HPI HPI Comments History of Present Illness Details 62 year old male with personal hxof poly ps presenting to the office for discussion of surveillance colonoscopy. 03/28/23: Patient has had polyps in the past but no personal or family history of colon cancer. His last colonoscopy was almost 8 years ago and was asked to return in 5 years however it got pushed due to covid-19 pandemic. Patient does not have any gastrointestinal symptoms to include abdominal pain, nausea, vomiting, diarrhea, blood in stool, weight loss. Labs reviewed and patient noted to have chronic anemia. 01/13/24: here for follow up. Was not able to do his colonoscopy prep due to intolerance to GoLYTELY. Requests a different prep. Otherwise, no symptoms today. No abdominal pain, nausea, vomiting, diarrhea. No blood in stool. No changes to family history including any colon cancer. PFSH Medical History Mixed hyperlipidemia Obesity (BMI 30-39.9) Vitamin D deficiency Obstructive sleep apnea Lumbar spondylosis Hypertriglyceridemia Surgical History Hx of colonoscopy Family History Father Diabetes mellitus Hypertension Mother Cancer Social History Housing: House Alcohol intake: never Patient Tobacco Use Status: Former Tobacco user Quit Date: > 10 yrs ago e-Cigarette/Vaping Use: Never Used service: No Current occupational status: employed Current occupational exposures/hazards: No Cognitive needs: No Hearing needs: No Vision needs: No Review of Systems Const All systems reviewed & are unremarkable except as noted in HPI and below Physical Exam Vital Signs: Last Vital Signs Pulse 70 01/13/24 15:07 BP 137/71 01/13/24 15:07 BMI result Body Mass Index 34.2 Gen appear: NAD, well nourished HEENT: no icterus, no cervical lymphadenopathy Chest: clear to auscultation CVS: Regular S1/S2 Abd: soft, nontender, nondistended Ext: no peripheral edema Neuro: A/Ox3, noted to move all extremities spontaneously Assessment & Plan Assessment & Plan (1) Anemia: Code(s): D64.9 - Anemia, unspecified (2) Personal history of colonic polyps: Code(s): Z86.010 - Personal history of colonic polyps Plan Has normocytic anemia with normal RDW and elevated ferritin which argues against iron deficiency. Will be booked for colonoscopy only for personal history of polyps. As per his request, Sutab kit has been sent to pharmacy. Instructions were reviewed in detail, and a handout was provided as well. Follow-up as needed after the colonoscopy Medications: New sod sulf-pot chloride-mag sulf 1.479-0.188- 0.225 gram (Sutab) PO PER PKG DIR 1 kit 0RF Coding Level of Care Code Est Pt Level 3 (85746) Diagnoses Anemia D64.9 Personal history of colonic polyps Z86.010
[2024-01-13 15:07] VITALS: BP 137/71; PULSE 70; BMI 34.2
== END 2024-01-13 16:11 | disposition home or self-care (01) ==
PROVIDERS: PCP Internal Medicine; Visit Provider Internal Medicine
DX: D64.9 Anemia, unspecified (principal); Z86.010 Personal history of colon polyps
CPT/HCPCS: 99213

== ENCOUNTER → 2024-01-13 14:49 | Outpatient (BNVA) | payer OTHER, SELFPAY | PROVIDERS: PCP Internal Medicine; Visit Provider Internal Medicine ==

== ENCOUNTER 2024-03-05 14:10 | Outpatient (REF) | payer OTHER, SELFPAY ==
[2024-03-05 14:34] LABS: MANUAL DIFF FLAG NO
[2024-03-05 15:46] LABS: Basophils Absolute Auto 0.1 X10*3/uL (0.0-0.2); Basophils Percent Auto 1.4 % (0-2); Eosinophils Absolute Auto 0.2 X10*3/uL (0.0-0.4); Eosinophils Percent Auto 3.5 % (0-4); Hemoglobin 12.2 g/dl (14.0-18.0); Imm Gran Abs Auto 0.01 X10*3/uL (0.00-0.03); Imm Gran Pct Auto 0.2 % (0.0-0.4); Lymphocytes Absolute Auto 1.9 X10*3/uL (1.2-4.9); Lymphocytes Percent Auto 38.2 % (20-40); Mean Corpuscular Hemoglobin 27.9 pg (27.0-33.0); Mean Corpuscular Volume 84.5 fL (80.0-98.0); Mean Platelet Volume 9.6 fL (9.4-12.4); Monocytes Absolute Auto 0.5 X10*3/uL (0.1-1.2); Monocytes Percent Auto 10.4 % (2-11); Neutrophils Absolute Auto 2.3 x10*3/uL (2.0-8.3); Neutrophils Percent Auto 46.3 % (45-73); Platelet Count 303 X10*3/uL (160-400); Red Blood Count 4.38 X10*6/uL (4.60-5.80); Red Cell Distribution Width 14.6 % (11.0-16.0); White Blood Count 4.9 X10*3/uL (4.8-10.8)
[2024-03-05 15:47] LABS: Appearance Urine Clear; Color Urine Yellow; Glucose Urine UA Negative (Negative); Leukocyte Esterase Urine Negative (Negative); Nitrite Urine Negative (Negative); PH 6.5 (5.0-9.0); Specific Gravity - Urine 1.025 (1.005-1.025); Urine Blood Negative (Negative); Urine Ketones Negative (Negative); Urine Protein Negative (Neg-Trace)
[2024-03-05 16:17] LABS: Alanine Aminotransferase 49 U/L (0-40); Albumin Level 4.2 g/dL (3.5-5.0); Alkaline Phosphatase 73 U/L (39-117); Anion Gap 14 (12-20); Aspartate Amino Transferase 31 U/L (5-37); Bilirubin Total 0.4 mg/dL (0.0-1.0); Blood Urea Nitrogen 17 mg/dL (9-16); Calcium 9.4 mg/dL (8.4-10.2); Carbon Dioxide 25 mmol/L (22-29); Chloride 107 mmol/L (96-108); Cholesterol 163 mg/dL (<200); Estimated Glomerular Filt Rate > 60; Glucose Fasting 116 mg/dL (60-99); HDL Cholesterol 35 mg/dL (>40); LDL Cholesterol Calculated 70 mg/dL (<100); Potassium 3.7 mmol/L (3.3-5.1); Sodium 142 mmol/L (135-145); Total Protein 7.5 g/dL (6.5-8.0); Triglycerides 291 mg/dL (<150)
[2024-03-05 16:34] LABS: TSH reflex Free T4 2.68 uIU/mL (0.32-4.0)
== END 2024-03-05 14:11 | disposition home or self-care (01) ==
LOC: HO.LAB 14:10
PROVIDERS: PCP Internal Medicine; Visit Provider Internal Medicine
DX: D64.9 Anemia, unspecified (principal); E78.00 Pure hypercholesterolemia, unspecified; R30.0 Dysuria
CPT/HCPCS: 36415; 80053; 80061; 81003; 84443; 85025

== ENCOUNTER 2024-03-09 14:28 | Outpatient (AMB) | payer OTHER, SELFPAY ==
[2024-03-09 14:29] VITALS: BP 122/60; PULSE 67; O2SAT 97; BMI 34.4
--- NOTE | 2024-03-09 14:29 | A.OFFPC_ITS ---
Vital Signs 03/09/24 14:29 Height 5 ft 8 in Weight 226 lb BMI 34.4 BP 122/60 Blood Pressure Location Lt brachial Position Sitting Pulse 67 Pulse Source Pulse Oximeter Pulse Oximetry (%) 97 Oxygen Delivery Method Room Air Intake Visit Reasons: 3 months Surveying Teacher Required: No Erp Consultant: Not Required per policy Accompanied by: Self / Same As Patient Allergies No Known Allergies [No Known Allergies*] Allergy (Verified 03/09/24 15:20) Medication List - Last Reconciled 03/09/24 by Gilmar Jacobs MD atorvastatin 10 mg PO BEDTIME budesonide 32 mcg/actuation 1 spray intranasal QAM [CPAP device and all related supplies As directed] meclizine 25 mg PO DAILY PRN nabumetone 500 mg PO BID PRN 30 days peg 3350-electrolytes 236-22.74-6.74 -5.86 gram (Golytely) 240 mL PO Q10M sod sulf-pot chloride-mag sulf 1.479-0.188- 0.225 gram (Sutab) PO PER PKG DIR Tobacco use date assessed: 12/12/23 Dental Screening Dental Screen Date: 12/12/23 HPI 3 months HPI Details Patient comes in today for his follow up visit States that he feels okay He denies any headaches or dizziness Denies any chest pains, no SOB No nausea/vomiting, no abdominal pain No change in bowel habits noted Had his follow up labs done a few days ago - to discuss his results States that his CPAP device, which is several years old, finally broke down a couple of weeks ago, and he will need to get Rx for a new unit [facility] Medical History Mixed hyperlipidemia Obesity (BMI 30-39.9) Vitamin D deficiency Obstructive sleep apnea Lumbar spondylosis Hypertriglyceridemia Surgical History Hx of colonoscopy Family History Father Diabetes mellitus Hypertension Mother Cancer Social History Housing: House Alcohol intake: never Patient Tobacco Use Status: Former Tobacco user Quit Date: > 10 yrs ago e-Cigarette/Vaping Use: Never Used service: No Current occupational status: employed Current occupational exposures/hazards: No Cognitive needs: No Hearing needs: No Vision needs: No Questionnaire Thrive Questionnaire Date Thrive assessed: 12/12/23 RADHA-7 AMB Questionnaire RADHA-7 Date RADHA - 7 assessed: 12/12/23 Source: Developed by Drs. Angus Hardy, Johanna Boswell, Neto Bear and colleagues, with an educational jacques from [email or web address]. Review of Systems Const Denies chills, Denies fatigue, Denies fever(s) and Denies headache(s) ENT Denies dysphagia, Denies dizziness, Denies otalgia, Denies headache(s), Denies nasal congestion, Denies odynophagia and Denies sore throat Card Denies chest pain, Denies palpitations and Denies dyspnea Resp Denies chest congestion, Denies cough and Denies dyspnea GI Denies abdominal pain, Denies constipation, Denies dysphagia, Denies heartburn, Denies diarrhea, Denies nausea, Denies odynophagia and Denies vomiting Denies dysuria, Denies nocturia and Denies urinary frequency Musc Reports back pain (over the lower back - chronic) and Denies arthralgias Skin/Breast Denies rash Neuro Denies dizziness and Denies headache(s) Endo Denies fatigue and Denies palpitations Physical exam (Primary Care) Vital Signs: Last Vital Signs Pulse 67 03/09/24 14:29 BP 122/60 03/09/24 14:29 Pulse Ox 97 03/09/24 14:29 Oxygen Delivery Method Room Air 03/09/24 14:29 BMI result Body Mass Index 34.4 Tobacco/Smoking Status: Tobacco use Status Tobacco use date assessed 12/12/23 03/09/24 14:30 Patient Tobacco Use Status Former Tobacco user 03/09/24 14:30 e-Cigarette/Vaping Use Never Used 03/09/24 14:30 Thrive Assessment: Date of Thrive Assessment Date Thrive assessed 12/12/23 03/09/24 14:30 Const General: no acute distress and alert HENMT Ears: TM's normal bilaterally and EAC's normal Throat: Yes posterior oropharynx normal and Yes tonsils normal (no TP congestion) Neck Neck: Yes no lymphadenopathy and Yes supple Thyroid: Thyroid normal Resp Auscultation: clear to auscultation bilaterally, no rales and no wheezes Cardio Rate: regular rate Rhythm: regular rhythm Heart sounds: no murmurs GI Palpation (GI): Soft to palpation and nontender Auscultation: normal bowel sounds General: Yes no CVA tenderness Back/Spine/Pelvis Back: no CVA tenderness Thoracic/Lumbar Spine: lumbar spinal tenderness (mild) Skin Rashes: no rashes Extrem General: Yes no clubbing, cyanosis or edema Left lower extremity: knee Details: tenderness Location: of the medial joint line; no swelling Results Reviewed Results Reviewed: Laboratory Tests 03/05/24 03/05/24 14:32 15:30 WBC 4.9 Hgb 12.2 L Hct 37.0 L Plt Count 303 Sodium 142 Potassium 3.7 Creatinine 0.91 Estimated GFR > 60 Fasting Glucose 116 H Calcium 9.4 AST 31 ALT 49 H Triglycerides 291 H Cholesterol 163 LDL Cholesterol, Calc 70 HDL Cholesterol 35 L TSH 2.68 Ur Specific [place] 1.025 Urine Protein Negative Urine Glucose (UA) Negative Urine Blood Negative Urine Nitrite Negative Ur Leukocyte Esterase Negative Assessment and Plan Assessment & Plan (1) Mixed hyperlipidemia: Code(s): E78.2 - Mixed hyperlipidemia Plan: Results of his labs done a few days ago reviewed and discussed with patient - advised that all of his cholesterol levels have improved slightly from previous Reinforced low cholesterol diet Continue Atorvastatin 10 mg QD Will have patient recheck his labs and fasting lipids in 3 months for follow up (2) Obstructive sleep apnea: Code(s): G47.33 - Obstructive sleep apnea (adult) (pediatric) Plan: States that he was using his CPAP device when sleeping at night daily and was benefitting from its regular use until his unit gave out a couple of weeks ago and he now needs to get a replacement unit - Rx given to patient (3) Vitamin D deficiency: Code(s): E55.9 - Vitamin D deficiency, unspecified Plan: Continue Vitamin D3 2000 units QD (4) Primary osteoarthritis of left knee: Code(s): M17.12 - Unilateral primary osteoarthritis, left knee Plan: X-rays of the left knee done back in October 2022 revealed (+) minimal OA changes of the medial and patellofemoral joint space compartments; no fracture, dislocation or joint effusion is seen Continue Nabumetone 500 mg BID PRN with food for pain Follow up with orthopedics as scheduled (5) Lumbar spondylosis: Code(s): M47.816 - Spondylosis without myelopathy or radiculopathy, lumbar region Plan: Reinforced activity and weight-lifting restrictions Lumbar spine x-rays last done on 09/25/2020 revealed (+) moderate degenerative disc changes at T12-L1 similar to 2017 and borderline disc narrowing at L4-L5 and probable mild facet degeneration at L5-S1 Will consider referring to pain management if his low back pain gets worse or progresses (6) Obesity (BMI 30-39.9): Code(s): E66.9 - Obesity, unspecified Plan: Reinforced diet/exercise as tolerated/lose weight Plan Follow up in 3 months Orders: Orders Complete Blood Count Auto Diff 3 Months D64.9 - Anemia, unspecified Comprehensive [place]. Panel Fast 3 Months E78.00 - Pure hypercholesterolemia, unspecified Lipid Panel 3 Months E78.00 - Pure hypercholesterolemia, unspecified Vitamin D 25-OH Total 3 Months E55.9 - Vitamin D deficiency, unspecified UA CC w/rflx Micro + Cult 3 Months R30.0 - Dysuria TSH reflex Free T4 3 Months E78.00 - Pure hypercholesterolemia, unspecified Medications: Refilled [CPAP device and all related supplies] As directed 1 ea 0RF G47.33 - Obstructive sleep apnea (adult) (pediatric) Coding Level of Care Code Est Pt Level 4 (88950) Diagnoses Mixed hyperlipidemia E78.2 Obstructive sleep apnea G47.33 Vitamin D deficiency E55.9 Primary osteoarthritis of left knee M17.12 Lumbar spondylosis M47.816 Obesity (BMI 30-39.9) E66.9
== END 2024-03-09 15:24 | disposition home or self-care (01) ==
PROVIDERS: PCP Internal Medicine; Visit Provider Internal Medicine
DX: E78.2 Mixed hyperlipidemia (principal); E66.9 Obesity, unspecified; Z68.34 Body mass index [BMI] 34.0-34.9, adult; G47.33 Obstructive sleep apnea (adult) (pediatric); E55.9 Vitamin D deficiency, unspecified; M17.12 Unilateral primary osteoarthritis, left knee; M47.816 Spondylosis without myelopathy or radiculopathy, lumbar region
CPT/HCPCS: 99214

== ENCOUNTER 2024-07-21 07:11 | Outpatient (REF) | payer OTHER, SELFPAY ==
[2024-07-21 07:27] LABS: MANUAL DIFF FLAG NO
[2024-07-21 07:40] LABS: Basophils Absolute Auto 0.1 X10*3/uL (0.0-0.2); Basophils Percent Auto 1.3 % (0-2); Eosinophils Absolute Auto 0.2 X10*3/uL (0.0-0.4); Eosinophils Percent Auto 3.1 % (0-4); Hematocrit 40.2 % (42.0-52.0); Hemoglobin 13.4 g/dl (14.0-18.0); Imm Gran Abs Auto 0.02 X10*3/uL (0.00-0.03); Imm Gran Pct Auto 0.4 % (0.0-0.4); Lymphocytes Absolute Auto 1.7 X10*3/uL (1.2-4.9); Lymphocytes Percent Auto 36.4 % (20-40); Mean Corpuscular HGB Conc 33.3 g/dl (31.0-36.0); Mean Corpuscular Hemoglobin 27.9 pg (27.0-33.0); Mean Corpuscular Volume 83.6 fL (80.0-98.0); Mean Platelet Volume 9.1 fL (9.4-12.4); Monocytes Absolute Auto 0.5 X10*3/uL (0.1-1.2); Monocytes Percent Auto 10.7 % (2-11); Neutrophils Absolute Auto 2.3 x10*3/uL (2.0-8.3); Neutrophils Percent Auto 48.1 % (45-73); Platelet Count 271 X10*3/uL (160-400); Red Blood Count 4.81 X10*6/uL (4.60-5.80); Red Cell Distribution Width 14.4 % (11.0-16.0); White Blood Count 4.8 X10*3/uL (4.8-10.8)
[2024-07-21 08:19] LABS: Alanine Aminotransferase 32 U/L (0-40); Albumin Level 4.2 g/dL (3.5-5.0); Alkaline Phosphatase 76 U/L (39-117); Anion Gap 11 (12-20); Aspartate Amino Transferase 24 U/L (5-37); Bilirubin Total 0.4 mg/dL (0.0-1.0); Blood Urea Nitrogen 15 mg/dL (9-16); Calcium 9.8 mg/dL (8.4-10.2); Carbon Dioxide 26 mmol/L (22-29); Chloride 108 mmol/L (96-108); Cholesterol 181 mg/dL (<200); Estimated Glomerular Filt Rate > 60; Glucose Fasting 101 mg/dL (60-99); HDL Cholesterol 34 mg/dL (>40); Sodium 141 mmol/L (135-145); Total Protein 7.5 g/dL (6.5-8.0); Triglycerides 482 mg/dL (<150)
[2024-07-21 08:35] LABS: TSH reflex Free T4 2.43 uIU/mL (0.32-4.0); Vitamin D 25-OH Total 35.4 ng/mL (>30)
[2024-07-21 08:43] LABS: Appearance Urine Clear; Color Urine Yellow; Glucose Urine UA Negative (Negative); Leukocyte Esterase Urine Negative (Negative); Nitrite Urine Negative (Negative); PH 6.5 (5.0-9.0); Urine Blood Negative (Negative); Urine Ketones Negative (Negative); Urine Protein Negative (Neg-Trace)
== END 2024-07-21 07:12 | disposition home or self-care (01) ==
LOC: HO.LAB 07:11
PROVIDERS: PCP Internal Medicine; Visit Provider Internal Medicine
DX: D64.9 Anemia, unspecified (principal); R30.0 Dysuria; E78.00 Pure hypercholesterolemia, unspecified; E55.9 Vitamin D deficiency, unspecified
CPT/HCPCS: 36415; 80053; 80061; 81003; 82306; 84443; 85025

== ENCOUNTER 2024-07-30 09:16 | Emergency (ER) | payer OTHER, SELFPAY ==
--- NOTE | ~2024-07-30 | CT_ITS ---
EXAMINATION: CT ABDOMEN AND PELVIS WITH CONTRAST CLINICAL INFORMATION: Epigastric pain COMPARISON: None available. TECHNIQUE: Multidetector volumetric images were obtained from the superior aspect of the liver through the pubic symphysis following administration 85 mL of Omnipaque 350 intravenous contrast. Sagittal and coronal reformatted images were obtained on the technologist's workstation. Oral contrast: No This CT examination was performed using dose optimization techniques as appropriate, variously including the following: *Automated exposure control *Adjustment of mA and/or kV according to patient size (this includes techniques or standardized protocols for targeted exams where dose is matched to indication/reason for exam; i.e. extremities or head) *Use of iterative reconstruction technique DLP: 717 mGy-cm FINDINGS: LUNG BASES: The heart size is borderline normal. The lung bases are clear. LIVER, GALLBLADDER, AND BILIARY TREE: The liver is normal size, shape and attenuation. A small hypodense nonenhancing 8 mm lesion left hepatic lobe. No additional lesions seen. There is no intrahepatic ductal dilatation.. The gallbladder is unremarkable with no evidence of radiopaque gallstones, gallbladder wall thickening, or obvious pericholecystic inflammatory changes. PANCREAS: The pancreas is normal size and density. No peripancreatic fluid's collections in. There is an 8 mm calcified density posterior to the body of the pancreas likely a phlebolith. SPLEEN: Unremarkable. ADRENAL GLANDS: Unremarkable. KIDNEYS AND URETERS: The kidneys are normal in size, shape, and attenuation. There is a left peripelvic renal cyst and an exophytic midpole 2.6 cm cyst. BLADDER: Unremarkable. GASTROINTESTINAL TRACT: Scattered stool and gas is seen within the colon without distention. The small bowel loops are normal caliber. Appendix is normal caliber. The stomach is nondistended. No free air or free fluid seen. ABDOMINAL WALL: A small umbilical hernia containing intraperitoneal fat is noted. LYMPH NODES: Normal. VASCULAR: Unremarkable. PELVIC VISCERA: The prostate gland is moderately enlarged OSSEOUS STRUCTURES: Mild degenerative disc changes T12-L1 disc level is noted. No aggressive lytic or sclerotic process seen. CT/CT abdomen pelvis w IV con IMPRESSION: 1. No acute intra-abdominal process seen. 2. Mild constipation. 3. Left renal cysts. 4. Small umbilical hernia containing intraperitoneal fat. 5. Moderate prostate enlargement. Fleischner guidelines were followed. Electronically signed by: Nik Fish MD 07/30/2024 07:22 PM EDT RP
[2024-07-30 09:21] VITALS: BP 155/72; PULSE 80; RESP 18; TEMP 37.2; O2SAT 96; BMI 32.5
[2024-07-30 10:04] LABS: Alanine Aminotransferase 32 U/L (0-40); Albumin Level 4.4 g/dL (3.5-5.0); Alkaline Phosphatase 68 U/L (39-117); Anion Gap 12 (12-20); Aspartate Amino Transferase 22 U/L (5-37); Bilirubin Direct 0.1 mg/dL (0.0-0.5); Bilirubin Total 0.4 mg/dL (0.0-1.0); Blood Urea Nitrogen 17 mg/dL (9-16); Calcium 9.9 mg/dL (8.4-10.2); Carbon Dioxide 25 mmol/L (22-29); Chloride 107 mmol/L (96-108); Creatinine Clr Calc Pharmacy 84.2; Estimated Glomerular Filt Rate > 60; Glucose Random 107 mg/dL (60-115); Sodium 140 mmol/L (135-145); Total Protein 7.7 g/dL (6.5-8.0)
[2024-07-30 10:27] LABS: COVID-19 Test Negative (Negative); IDNOW Serial# 152EDE1D
--- NOTE | 2024-07-30 16:35 | ED_ITS ---
HPI - Abdominal Pain General Chief Complaint: Abdominal Pain Stated Complaint: abd pain Time Seen by Provider: 07/30/24 16:25 Source: patient Mode of arrival: ambulatory Limitations: no limitations History of Present Illness ED Provider: Dr. Nela Sears HPI narrative: Patient comes to the emergency room complaining of abdominal pain that started 3 weeks ago. Patient states that he has been trying to take Gas-X at home to help with the distention. Today when he was at work, noticed that he had left-sided flank pain and periumbilical pain and epigastric pain. Patient decided to come to emergency room to get checked out. Patient denies nausea vomiting diarrhea, no chest pain or shortness of breath, no fever or chills. Patient denies hematuria or dysuria Related Data Previous Rx's ?Medication ?Instructions ?Recorded meclizine 25 mg tablet 25 mg PO DAILY PRN motion sickness 11/10/22 #14 tabs nabumetone 500 mg tablet 500 mg PO BID PRN knee pain 30 02/14/23 days #60 tabs peg 3350-electrolytes 236 240 ml PO Q10M colonoscopy #4,000 03/28/23 gram-22.74 gram-6.74 gram-5.86 mL gram solution (Golytely) budesonide 32 mcg/actuation nasal 1 spray intranasal QAM #8.43 mL 12/12/23 spray sodium sul 1.479 gram-potas ch See Rx Instructions PO PER PKG DIR 01/13/24 0.188 gram-magnes sul 0.225 gram #1 kit tablet (Sutab) atorvastatin 10 mg tablet 10 mg PO BEDTIME #90 tabs 02/29/24 CPAP device and all related #1 ea 03/30/24 supplies Allergies Allergy/AdvReac Type Severity Reaction Status Date / Time No Known Allergies Allergy Verified 07/30/24 09:22 [No Known Allergies*] Review of Systems Review of Systems Constitutional : No Weight loss, No Fever, No Chills, No Night Sweats, No Fatigue, No Malaise ENT/Mouth : No Hearing loss, No Ear Pain, No Nasal Congestion, No Sinus Pain, No Hoarseness, No sore throat, No Rhinorrhea, No Swallowing Difficulty Eyes: No Eye Pain, No Swelling, No Redness, No Foreign Body, No Discharge, No Vision Changes Cardiovascular : No Chest Pain, No SOB, No Dyspnea on Exertion, No Orthopnea, No Edema, No Palpitations Respiratory : No Cough, No Sputum, No Wheezing, No Smoke Exposure, No Dyspnea Gastrointestinal : No Nausea, No Vomiting, No Diarrhea, No Constipation, complaining of abdominal pain in periumbilical epigastric area and left flank Genitourinary : no irregular bleeding, No Dysuria, No Urinary Frequency, No Hematuria, No Urinary Incontinence, No Urgency, No Flank Pain, No Urinary Flow Changes, No Hesitancy Musculoskeletal : No joint pain, No Myalgias, No Joint Swelling Skin : No Skin Lesions, No rash Neuro : No Weakness, No Numbness, No Paresthesias, No Loss of Consciousness, No Dizziness, No Headache Psych : No Anxiety/Panic, No Depression, No SI/HI/AH/VH, No Social Issues, Heme/Lymph: No Bruising, No Bleeding,No Lymphadenopathy Endocrine : No Polyuria, No Polydipsia, No Temperature Intolerance PMFSH Past Medical History Medical History Mixed hyperlipidemia Obesity (BMI 30-39.9) Vitamin D deficiency Obstructive sleep apnea Lumbar spondylosis Hypertriglyceridemia Surgical History Hx of colonoscopy Family History Family History Father Diabetes mellitus Hypertension Mother Cancer Social History Social History Housing: House Alcohol intake: never Patient Tobacco Use Status: Former Tobacco user Smoked in Last 30 Days: No e-Cigarette/Vaping Use: Never Used Use of substances other than those prescribed or required for medical reasons: No Advance Directives: No Advance Directives Information Provided: No Do you have a plan to hurt others: No Plan service: No Current occupational status: employed Current occupational exposures/hazards: No Cognitive needs: No Hearing needs: No Vision needs: No Physical Exam ED Vital Signs: Vital Signs - 24 hr 07/30/24 09:21 07/30/24 16:37 07/30/24 19:08 Temperature 99 F 98 F 97.8 F Pulse Rate 80 65 58 Respiratory Rate 18 18 18 Blood Pressure 155/72 H 145/67 H 135/69 Pulse Oximetry 96 95 96 Oxygen Delivery Method Room Air Room Air Room Air BMI result Body Mass Index 32.5 Const Other: Appearance: Alert. Oriented X3. No acute distress. Eyes: Pupils equal, round and reactive to light. ENT: Pharynx normal. Neck: Normal inspection. Neck supple. No lymph nodes noted. No crepitus CVS: Normal heart rate and rhythm. Pulses normal. Normal S1 and S2 Respiratory: No respiratory distress. Breath sounds normal. No Wheezing. No rales Abdomen: Soft , nondistended, mild pain to palpation in epigastric area and mild pain over the left flank pain. Skin: Skin warm and dry. Normal skin color. Normal skin turgor. Extremities: No lower extremity edema. No Lacerations. No Rash Neuro: Oriented X 3. No motor deficit. No sensory deficit. Moving all extremities. No slurred speech. CN 2 through 12 grossly intact Psych: calm, cooperative, normal affect Course Course Course Narrative: At this time, patient denies significant pain, declined pain medication. -CT scan pending Medical Decision Making Medical Decision Making [facility] Narrative: My interpretation of labs, normal chemistry -CT scan of the abdomen pelvis my interpretation: No obvious abnormality -urinalysis negative Patient's pain likely musculoskeletal. Differential Diagnosis Differential Diagnoses: The differential diagnosis associated with the presentation includes (Hernia, SBO, pancreatitis, cholecystitis, appendicitis, functional abdominal pain, UTI) Admission/Observation Consideration of admission/observation: Escalation of care including admission/observation considered (Given patient's length of symptoms, admission was considered) Lab Data [facility] Lab Attestation statement: I reviewed the patient's lab results. 07/30/24 09:38 07/30/24 09:38 Labs: Lab Results 07/30/24 07/30/24 07/30/24 Range/Units 09:38 16:43 19:15 WBC 4.6 L (4.8-10.8) X10*3/uL RBC 4.80 (4.60-5.80) X10*6/uL Hgb 13.2 L (14.0-18.0) g/dl Hct 40.4 L (42.0-52.0) % MCV 84.2 (80.0-98.0) fL MCH 27.5 (27.0-33.0) pg MCHC 32.7 (31.0-36.0) g/dl RDW 14.5 (11.0-16.0) % Plt Count 259 (160-400) X10*3/uL MPV 10.4 (9.4-12.4) fL Immature Gran % (Auto) 0.2 (0.0-0.4) % Neut % (Auto) 52.9 (45-73) % Lymph % (Auto) 32.3 (20-40) % [place] % (Auto) 11.6 H (2-11) % Eos % (Auto) 1.9 (0-4) % Baso % (Auto) 1.1 (0-2) % Lymph # (Auto) 1.5 (1.2-4.9) X10*3/uL [place] # (Auto) 0.5 (0.1-1.2) X10*3/uL Eos # (Auto) 0.1 (0.0-0.4) X10*3/uL Baso # (Auto) 0.1 (0.0-0.2) X10*3/uL Abs Immat Gran (auto) 0.01 (0.00-0.03) X10*3/uL Absolute Neuts (auto) 2.5 (2.0-8.3) x10*3/uL Absolute Nucleated RBC 0.000 (0.0-0.012) X10*3/uL Nucleated RBC % (auto) 0.0 (0.0-0.2) /100WBC Hold Purple Top SEE NOTE Sodium 140 (135-145) mmol/L Potassium 4.0 (3.3-5.1) mmol/L Chloride 107 (96-108) mmol/L Carbon Dioxide 25 (22-29) mmol/L Anion Gap 12 (12-20) BUN 17 H (9-16) mg/dL Creatinine 1.04 (0.5-1.4) mg/dL Estim Creat Clear Calc 84.2 Estimated GFR > 60 Random Glucose 107 (60-115) mg/dL Calcium 9.9 (8.4-10.2) mg/dL Total Bilirubin 0.4 0.6 (0.0-1.0) mg/dL Direct Bilirubin 0.1 0.2 (0.0-0.5) mg/dL AST 22 21 (5-37) U/L ALT 32 32 (0-40) U/L Alkaline Phosphatase 68 66 (39-117) U/L Total Protein 7.7 7.6 (6.5-8.0) g/dL Albumin 4.4 4.3 (3.5-5.0) g/dL Lipase 24 (8-78) U/L Urine Color Yellow Urine Appearance Clear Urine pH 7.0 (5.0-9.0) Ur Specific [place] >= 1.030 H (1.005-1.025) Urine Protein Negative (Neg-Trace) mg/dL Urine Glucose (UA) Negative (Negative) mg/dL Urine Ketones Negative (Negative) mg/dL Urine Blood Negative (Negative) Urine Nitrite Negative (Negative) Ur Leukocyte Esterase Negative (Negative) COVID-19 ([facility]) Negative (Negative) COVID-19 Clin Com See Note Independent Interpretation I performed an independent interpretation of an: CT Scan Radiology Impression Discussion of test interpretation with radiology: I have reviewed the radiologist's reading. Radiologist Impression: FINDINGS: LUNG BASES: The heart size is borderline normal. The lung bases are clear. LIVER, GALLBLADDER, AND BILIARY TREE: The liver is normal size, shape and attenuation. A small hypodense nonenhancing 8 mm lesion left hepatic lobe. No additional lesions seen. There is no intrahepatic ductal dilatation.. The gallbladder is unremarkable with no evidence of radiopaque gallstones, gallbladder wall thickening, or obvious pericholecystic inflammatory changes. PANCREAS: The pancreas is normal size and density. No peripancreatic fluid's collections in. There is an 8 mm calcified density posterior to the body of the pancreas likely a phlebolith. SPLEEN: Unremarkable. ADRENAL GLANDS: Unremarkable. KIDNEYS AND URETERS: The kidneys are normal in size, shape, and attenuation. There is a left peripelvic renal cyst and an exophytic midpole 2.6 cm cyst. BLADDER: Unremarkable. GASTROINTESTINAL TRACT: Scattered stool and gas is seen within the colon without distention. The small bowel loops are normal caliber. Appendix is normal caliber. The stomach is nondistended. No free air or free fluid seen. ABDOMINAL WALL: A small umbilical hernia containing intraperitoneal fat is noted. LYMPH NODES: Normal. VASCULAR: Unremarkable. PELVIC VISCERA: The prostate gland is moderately enlarged OSSEOUS STRUCTURES: Mild degenerative disc changes T12-L1 disc level is noted. No aggressive lytic or sclerotic process seen. CT/CT abdomen pelvis w IV con IMPRESSION: 1. No acute intra-abdominal process seen. 2. Mild constipation. 3. Left renal cysts. 4. Small umbilical hernia containing intraperitoneal fat. 5. Moderate prostate enlargement. Fleischner guidelines were followed. Medications Administered Discontinued Medications Generic Name Dose Route Start Last Admin Trade Name Freq PRN Reason Stop Dose Admin Iohexol 85 ml 07/30/24 17:02 07/30/24 17:02 Iohexol 350 Mg/Ml 100 Ml Infus..Btl IV 07/30/24 17:03 85 ml ONCE ONE Administration Critical Care Time Critical Care Time Critical Care Time: Yes Total Critical Care Time: 35 Attestation: I have personally provided critical care time. Time includes review of lab data, radiology results, discussion with consultants, and monitoring for potential decompensation. Intervention performed as documented. Discharge Plan Discharge Clinical Impression: Abdominal pain Patient Disposition: Home, Self-Care Instructions: Abdominal Pain (ED) Additional Instructions: Please follow-up with your primary care physician tomorrow. If you have any worsening or new symptoms, please return to the emergency room or call 911 Prescriptions: No Action atorvastatin 10 mg tablet 10 mg PO BEDTIME Qty: 90 1RF (DME) CPAP device and all related supplies See Rx Instructions .Route .MEDSUPPLY Qty: 1 0RF Rx Instructions: As directed meclizine 25 mg tablet 25 mg PO DAILY PRN (Reason: motion sickness) Qty: 14 0RF nabumetone 500 mg tablet 500 mg PO BID PRN (Reason: knee pain) 30 Days Qty: 60 0RF budesonide 32 mcg/actuation spray,non-aerosol 1 spray intranasal QAM Qty: 8.43 3RF Rx Instructions: administer into each nostril Sutab 1.479-0.188- 0.225 gram tablet See Rx Instructions PO PER PKG DIR Qty: 1 0RF Rx Instructions: PO PER PKG DIR peg 3350-electrolytes [Golytely] 236-22.74-6.74 -5.86 gram recon soln 240 ml PO Q10M Qty: 4000 0RF Rx Instructions: as per split prep instructions, until fecal effluent is clear Print Language: Romansh
[2024-07-30 16:37] VITALS: BP 145/67; PULSE 65; RESP 18; TEMP 36.6; O2SAT 95
[2024-07-30 16:37] LABS: MANUAL DIFF FLAG NO
[2024-07-30 16:48] LABS: Basophils Absolute Auto 0.1 X10*3/uL (0.0-0.2); Basophils Percent Auto 1.1 % (0-2); Eosinophils Absolute Auto 0.1 X10*3/uL (0.0-0.4); Eosinophils Percent Auto 1.9 % (0-4); Hematocrit 40.4 % (42.0-52.0); Hemoglobin 13.2 g/dl (14.0-18.0); Imm Gran Abs Auto 0.01 X10*3/uL (0.00-0.03); Imm Gran Pct Auto 0.2 % (0.0-0.4); Lymphocytes Absolute Auto 1.5 X10*3/uL (1.2-4.9); Lymphocytes Percent Auto 32.3 % (20-40); Mean Corpuscular HGB Conc 32.7 g/dl (31.0-36.0); Mean Corpuscular Hemoglobin 27.5 pg (27.0-33.0); Mean Corpuscular Volume 84.2 fL (80.0-98.0); Mean Platelet Volume 10.4 fL (9.4-12.4); Monocytes Absolute Auto 0.5 X10*3/uL (0.1-1.2); Monocytes Percent Auto 11.6 % (2-11); Neutrophils Absolute Auto 2.5 x10*3/uL (2.0-8.3); Neutrophils Percent Auto 52.9 % (45-73); Platelet Count 259 X10*3/uL (160-400); Red Cell Distribution Width 14.5 % (11.0-16.0); White Blood Count 4.6 X10*3/uL (4.8-10.8)
[2024-07-30] MEDS: iohexoL 350 MG/ML 100 ML INFUS..BTL 85 ML IV (17:02)
[2024-07-30 17:08] LABS: Alanine Aminotransferase 32 U/L (0-40); Albumin Level 4.3 g/dL (3.5-5.0); Alkaline Phosphatase 66 U/L (39-117); Aspartate Amino Transferase 21 U/L (5-37); Bilirubin Direct 0.2 mg/dL (0.0-0.5); Bilirubin Total 0.6 mg/dL (0.0-1.0); Lipase 24 U/L (8-78); Total Protein 7.6 g/dL (6.5-8.0)
[2024-07-30 19:08] VITALS: BP 135/69; PULSE 58; RESP 18; TEMP 36.6; O2SAT 96
[2024-07-30 19:44] LABS: Appearance Urine Clear; Color Urine Yellow; Glucose Urine UA Negative (Negative); Leukocyte Esterase Urine Negative (Negative); Nitrite Urine Negative (Negative); Specific Gravity - Urine >= 1.030 (1.005-1.025); Urine Blood Negative (Negative); Urine Ketones Negative (Negative); Urine Protein Negative (Neg-Trace)
[2024-07-30 20:41] VITALS: BP 135/69; PULSE 58; RESP 18; TEMP 36.6; O2SAT 96
== END 2024-07-30 20:42 | disposition home or self-care (01) ==
PROVIDERS: Emergency Provider Emergency Medicine; PCP Internal Medicine
DX: R10.9 Unspecified abdominal pain (principal); R10.13 Epigastric pain; Z11.52 Encounter for screening for COVID-19
CPT/HCPCS: 36415; 74177; 80048; 80076; 81003; 83690; 85025; 87635; 99284; Q9967

== ENCOUNTER 2024-08-03 15:34 | Outpatient (AMB) | payer OTHER, SELFPAY ==
--- NOTE | 2024-08-03 16:01 | MHC.PC.OV ---
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 Required: No Accompanied by: Self / Same As Patient Allergies No Known Allergies [No Known Allergies*] Allergy (Verified 08/04/24 05:35) Medication List - Last Reconciled 08/04/24 by Gilmar Jacobs MD atorvastatin 10 mg PO BEDTIME budesonide 32 mcg/actuation 1 spray intranasal QAM [CPAP device and all related supplies As directed] meclizine 25 mg PO DAILY PRN nabumetone 500 mg PO BID PRN 30 days omeprazole 20 mg PO BID 30 days peg 3350-electrolytes 236-22.74-6.74 -5.86 gram (Golytely) 240 mL PO Q10M sod sulf-pot chloride-mag sulf 1.479-0.188- 0.225 gram (Sutab) PO PER PKG DIR Tobacco use date assessed: 08/03/24 Dental Screening Dental Screen Date: 08/03/24 Did you have a dental visit in the last 12 months?: Yes Did you have a dental problem in the last 6 months where you did not have access to dental care?: No Was dental information given to patient?: Patient has dentist [place] [facility] [place] Abdominal pain HPI Details Patient comes in today for his F follow up visit He was seen at the ER earlier this week for 3 weeks duration of abdominal pain Patient states that he has been taking some OTC Gas-X to help relieve his bloating but it has not helped much Work ups done in the ER, including labs and abdominal and pelvic CT, were unrevealing other than mild constipation and a small umbilical hernia There are left renal cysts and moderate prostate enlargement noted incidentally on his CT He was then discharged home with instructions to follow up with his PCP Patient states that his abdominal pain has since subsided States that he eats well and has been moving his bowels regularly; he denies any nausea or vomiting He denies any fever, headaches or dizziness Denies any chest pains, no SOB States that he also needs his allergy nose spray Rx refilled PFSH Medical History (Updated 08/04/24 @ 06:23 by Gilmar Jacobs MD) Allergic rhinitis Mixed hyperlipidemia Obesity (BMI 30-39.9) Vitamin D deficiency Obstructive sleep apnea Lumbar spondylosis Hypertriglyceridemia Surgical History Hx of colonoscopy Family History Father Diabetes mellitus Hypertension Mother Cancer Social History Housing: House Alcohol intake: never Patient Tobacco Use Status: Former Tobacco user e-Cigarette/Vaping Use: Never Used service: No Current occupational status: employed Current occupational exposures/hazards: No Cognitive needs: No Hearing needs: No Vision needs: No Questionnaire PHQ-9 Over the last 2 weeks, how often have you been bothered by any of the following problems? 1. Little interest or pleasure in doing things: not at all 2. Feeling down, depressed, or hopeless: not at all 3. Trouble falling or staying asleep, or sleeping too much: not at all 4. Feeling tired or having little energy: not at all 5. Poor appetite or overeating: not at all 6. Feeling bad about yourself - or that you are a failure or have let yourself or your family down: not at all 7. Trouble concentrating on things, such as reading the newspaper or watching television: not at all 8. Moving or speaking so slowly that other people could have noticed. Or the opposite - being so fidgety or restless that you have been moving around a lot more than usual: not at all 9. Thoughts that you would be better off or of hurting yourself in some way: not at all Total score: 0 Depression Screening Interpretation: Negative Depression Screening Done: Yes 56584 - PHQ-9 Billing: Yes Source: Developed by Drs. Angus Hardy, Johanna Boswell, Neto Bear and colleagues, with an educational jacques from [employer]. Thrive Questionnaire Date Thrive assessed: 08/03/24 I am a: Patient What is your living situation today?: I have a steady place to live Within the past 12 months, did the food you bought not last and you didn't have the money to get more?: Never true Within the past 12 months, did you worry whether your food would run out before you got money to buy more?: Never true Do you have trouble paying for medicines?: No Do you have trouble getting transportation to medical appointments?: No Do you have trouble paying your heating and electricity bill?: No Do you have trouble taking care of your child, family member or friend?: No Do you have trouble with day-to-day activities such as bathing, preparing meals, shopping, managing finances, etc.?: No Are you currently unemployed and looking for a job?: No Are you interested in more education?: No Please select the resources that you would like help with: None Currently or been in a relationship where the following occur: No concerns reported THRIVE Score: 0 AUDIT C Alcohol Use Questionnaire (AUDIT-C) 1. How often do you have a drink containing alcohol?: Never 2. How many drinks containing alcohol do you have on a typical day when you are drinking?: 1 or 2 3. How often do you have six or more drinks on one occasion?: Never Total Score: 0 Score Reviewed/Action Taken: Yes RADHA-7 AMB Questionnaire RADHA-7 Date RADHA - 7 assessed: 08/03/24 Feeling nervous, anxious, or on edge: 0 = Not at all Not being able to stop or control worryin = Not at all Worrying too much about different things: 0 = Not at all Trouble relaxin = Not at all Being so restless that it is hard to sit still: 0 = Not at all Becoming easily annoyed or irritable: 0 = Not at all Feeling afraid as if something awful might happen: 0 = Not at all Total RADHA-7 score (0-4 normal; 5-9 mild; 10-14 moderate; 15-21 severe): 0 Source: Developed by Drs. Angus Hardy, Johanna Boswell, Neto Bear and colleagues, with an educational jacuqes from [employer]. Review of Systems Const Denies chills, Denies fatigue, Denies fever(s) and Denies headache(s) ENT Denies dysphagia, Denies dizziness, Denies otalgia, Denies headache(s), Denies neck pain, Denies odynophagia and Denies sore throat Card Denies chest pain, Denies palpitations and Denies dyspnea Resp Denies chest congestion, Denies cough and Denies dyspnea GI Denies abdominal pain (his recent abdominal pain has resolved), Denies constipation, Denies dysphagia, Denies heartburn, Denies diarrhea, Denies nausea, Denies odynophagia and Denies vomiting Denies dysuria, Denies nocturia and Denies urinary frequency Musc Reports back pain (over the lower back - chronic), Denies arthralgias and Denies neck pain Skin/Breast Denies rash Neuro Denies dizziness and Denies headache(s) Endo Denies fatigue and Denies palpitations Physical exam (Primary Care) Vital Signs: Last Vital Signs Pulse 73 08/03/24 16:02 BP 134/80 08/03/24 16:02 Pulse Ox 95 08/03/24 16:02 Oxygen Delivery Method Room Air 08/03/24 16:02 BMI result Body Mass Index 33.7 Tobacco/Smoking Status: Tobacco use Status Tobacco use date assessed 08/03/24 08/03/24 16:13 Patient Tobacco Use Status Former Tobacco user 08/03/24 16:13 e-Cigarette/Vaping Use Never Used 08/03/24 16:13 PHQ-9: PHQ-9 Score PHQ-9: Total score 0 08/03/24 16:28 Depression Screening Interpretation: Negative Thrive Assessment: Date of Thrive Assessment Date Thrive assessed 08/03/24 08/03/24 16:13 Currently or been in a relationship where the following occur: No concerns reported Const General: no acute distress and alert HENMT Throat: Yes posterior oropharynx normal and Yes tonsils normal (no TP congestion) Neck Neck: Yes no lymphadenopathy and Yes supple Thyroid: Thyroid normal Resp Auscultation: clear to auscultation bilaterally, no rales and no wheezes Cardio Rate: regular rate Rhythm: regular rhythm Heart sounds: no murmurs GI Palpation (GI): Soft to palpation and nontender Auscultation: normal bowel sounds General: Yes no CVA tenderness Back/Spine/Pelvis Back: no CVA tenderness Thoracic/Lumbar Spine: lumbar spinal tenderness (mild) Skin Rashes: no rashes Extrem General: Yes no clubbing, cyanosis or edema Coding Level of Care Code Est Pt Level 3 (14077) Diagnoses Epigastric pain R10.13 Abdominal location: epigastric Constipation, unspecified constipation type K59.00 Constipation type: unspecified constipation type Allergic rhinitis, unspecified seasonality, unspecified trigger J30.9 Allergic rhinitis trigger: unspecified Allergic rhinitis seasonality: unspecified Assessment & Plan Assessment & Plan (1) Abdominal pain: Code(s): R10.9 - Unspecified abdominal pain Category: Medical Qualifiers: Abdominal location: epigastric Qualified Code(s): R10.13 - Epigastric pain Plan: Labs and abdominal CT done at the ER a few days ago were unrevealing other than mild constipation Patient states that his abdominal pain has since subsided / resolved He is advised that his recent abdominal pain may have been due to gastritis and he should have this evaluated further (may need EGD) as it can recur in the future if it is Discussed dietary restrictions to avoid aggravating his GI symptoms Will start patient on Omeprazole 20 mg QD for now Will refer him to GI for further evaluation and management and consideration for EGD and if needed, they can hopefully get this done at the same time as his colonoscopy on 10/09/2024 (2) Constipation: Code(s): K59.00 - Constipation, unspecified Category: Medical Qualifiers: Constipation type: unspecified constipation type Qualified Code(s): K59.00 - Constipation, unspecified Plan: He is encouraged to continue to increase his oral fluid and dietary fiber intake He is scheduled for his repeat colonoscopy with GI on 10/09/2024 (3) Allergic rhinitis: Code(s): J30.9 - Allergic rhinitis, unspecified Category: Medical Qualifiers: Allergic rhinitis trigger: unspecified Allergic rhinitis seasonality: unspecified Qualified Code(s): J30.9 - Allergic rhinitis, unspecified Plan: Continue Budesonide 32 mcg nasal spray QD PRN - Rx refilled, per request Plan Follow up as scheduled in October 2024 Orders: Referrals Gastroenterology Referral R10.9 - Unspecified abdominal pain Medications: New omeprazole 20 mg PO BID 30 days 60 caps 2RF K29.70 - Gastritis, unspecified, without bleeding Refilled budesonide 32 mcg/actuation administer into each nostril 1 spray intranasal QAM 8.43 mL 3RF
[2024-08-03 16:02] VITALS: BP 134/80; PULSE 73; O2SAT 95; BMI 33.7
== END 2024-08-03 16:43 | disposition home or self-care (01) ==
PROVIDERS: PCP Internal Medicine; Visit Provider Internal Medicine
DX: R10.13 Epigastric pain (principal); K59.00 Constipation, unspecified; J30.9 Allergic rhinitis, unspecified

== ENCOUNTER → 2024-08-03 15:34 | Outpatient (BNVA) | payer OTHER, SELFPAY | PROVIDERS: PCP Internal Medicine; Visit Provider Internal Medicine ==

== ENCOUNTER 2024-08-29 15:54 | Outpatient (AMB) | payer OTHER, SELFPAY ==
[2024-08-29 15:57] VITALS: BP 110/68; PULSE 70; O2SAT 95; BMI 33.7
--- NOTE | 2024-08-29 15:57 | A.OFFPC_ITS ---
Vital Signs 08/29/24 15:57 Height 5 ft 8 in Weight 221 lb 8 oz BMI 33.7 BP 110/68 Blood Pressure Location Lt brachial Position Sitting Pulse 70 Pulse Source Pulse Oximeter Pulse Oximetry (%) 95 Oxygen Delivery Method Room Air Intake Visit Reasons: abdomen and left pain Director Quality Assurance Required: No Accompanied by: Self / Same As Patient Allergies No Known Allergies [No Known Allergies*] Allergy (Verified 08/29/24 16:38) Medication List - Last Reconciled 08/29/24 by Gilmar Jacobs MD atorvastatin 10 mg PO BEDTIME budesonide 32 mcg/actuation 1 spray intranasal QAM [CPAP device and all related supplies As directed] meclizine 25 mg PO DAILY PRN nabumetone 500 mg PO BID PRN 30 days omeprazole 20 mg PO BID 30 days peg 3350-electrolytes 236-22.74-6.74 -5.86 gram (Golytely) 240 mL PO Q10M sod sulf-pot chloride-mag sulf 1.479-0.188- 0.225 gram (Sutab) PO PER PKG DIR Tobacco use date assessed: 08/29/24 Dental Screening Dental Screen Date: 08/29/24 Did you have a dental visit in the last 12 months?: Yes Did you have a dental problem in the last 6 months where you did not have access to dental care?: No Was dental information given to patient?: Patient has dentist HPI abdomen and left pain HPI Details Patient comes in today for his follow up visit He continues to experience recurrent pain over his left lower abdomen and would like to know how his recent abdominal and pelvic CT done last month came out Notes that the pain over his left lower abdominal area is often more prominent in the morning after he wakes up and he feels that the pain would start to ease up slowly when he is walking He denies any nausea or vomiting and states that his left lower abdominal pain is not related to or affected by bowel movements or by urination he continues to experience recurrent pain over his lower back that he states sometimes radiate down to his left thigh but the pain never goes below his left knee No other acute complaints or symptoms are noted States that he again needs his allergy nasal spray Rx refilled and that his pharmacy keeps telling him last month when he tried to pick it up that the prescription was never sent from the office even though we sent it in during patient's visit here in the office [facility] Medical History Allergic rhinitis Mixed hyperlipidemia Obesity (BMI 30-39.9) Vitamin D deficiency Obstructive sleep apnea Lumbar spondylosis Hypertriglyceridemia Surgical History Hx of colonoscopy Family History Father Diabetes mellitus Hypertension Mother Cancer Social History Housing: House Alcohol intake: never Patient Tobacco Use Status: Former Tobacco user e-Cigarette/Vaping Use: Never Used service: No Current occupational status: employed Current occupational exposures/hazards: No Cognitive needs: No Hearing needs: No Vision needs: No Questionnaire PHQ-9 Over the last 2 weeks, how often have you been bothered by any of the following problems? 1. Little interest or pleasure in doing things: not at all 2. Feeling down, depressed, or hopeless: not at all 3. Trouble falling or staying asleep, or sleeping too much: not at all 4. Feeling tired or having little energy: not at all 5. Poor appetite or overeating: not at all 6. Feeling bad about yourself - or that you are a failure or have let yourself or your family down: not at all 7. Trouble concentrating on things, such as reading the newspaper or watching television: not at all 8. Moving or speaking so slowly that other people could have noticed. Or the opposite - being so fidgety or restless that you have been moving around a lot more than usual: not at all 9. Thoughts that you would be better off or of hurting yourself in some way: not at all Total score: 0 Depression Screening Interpretation: Negative Depression Screening Done: Yes 30468 - PHQ-9 Billing: Yes Source: Developed by Drs. Angus Hardy, Johanna Boswell, Neto Bear and colleagues, with an educational jacques from [employer]. Thrive Questionnaire Date Thrive assessed: 08/29/24 I am a: Patient What is your living situation today?: I have a steady place to live Within the past 12 months, did the food you bought not last and you didn't have the money to get more?: Never true Within the past 12 months, did you worry whether your food would run out before you got money to buy more?: Never true Do you have trouble paying for medicines?: No Do you have trouble getting transportation to medical appointments?: No Do you have trouble paying your heating and electricity bill?: No Do you have trouble taking care of your child, family member or friend?: No Do you have trouble with day-to-day activities such as bathing, preparing meals, shopping, managing finances, etc.?: No Are you currently unemployed and looking for a job?: No Are you interested in more education?: No Please select the resources that you would like help with: None Currently or been in a relationship where the following occur: No concerns reported THRIVE Score: 0 AUDIT C Alcohol Use Questionnaire (AUDIT-C) 1. How often do you have a drink containing alcohol?: Never 2. How many drinks containing alcohol do you have on a typical day when you are drinking?: 1 or 2 3. How often do you have six or more drinks on one occasion?: Never Total Score: 0 Score Reviewed/Action Taken: Yes RADHA-7 AMB Questionnaire RADHA-7 Date RADHA - 7 assessed: 08/29/24 Feeling nervous, anxious, or on edge: 0 = Not at all Not being able to stop or control worryin = Not at all Worrying too much about different things: 0 = Not at all Trouble relaxin = Not at all Being so restless that it is hard to sit still: 0 = Not at all Becoming easily annoyed or irritable: 0 = Not at all Feeling afraid as if something awful might happen: 0 = Not at all Total RADHA-7 score (0-4 normal; 5-9 mild; 10-14 moderate; 15-21 severe): 0 Source: Developed by Drs. Angus Hardy, Johanna Boswell, Neto Bear and colleagues, with an educational jacques from [employer]. Review of Systems Const Denies chills, Denies fatigue, Denies fever(s) and Denies headache(s) ENT Denies dysphagia, Denies dizziness, Denies otalgia, Denies headache(s), Denies neck pain, Denies odynophagia and Denies sore throat Card Denies chest pain, Denies palpitations and Denies dyspnea Resp Denies chest congestion, Denies cough and Denies dyspnea GI Reports abdominal pain (recurrent, over the left lower abdomen), Denies constipation, Denies dysphagia, Denies heartburn, Denies diarrhea, Denies nausea, Denies odynophagia and Denies vomiting Denies dysuria, Denies nocturia and Denies urinary frequency Musc Reports back pain (over the lower back - chronic), Denies arthralgias, Denies neck pain and Reports radiating pain into limb (into the left thigh) Skin/Breast Denies rash Neuro Denies dizziness and Denies headache(s) Endo Denies fatigue and Denies palpitations Physical exam (Primary Care) Vital Signs: Last Vital Signs Pulse 70 08/29/24 15:57 BP 110/68 08/29/24 15:57 Pulse Ox 95 08/29/24 15:57 Oxygen Delivery Method Room Air 08/29/24 15:57 BMI result Body Mass Index 33.7 Tobacco/Smoking Status: Tobacco use Status Tobacco use date assessed 08/29/24 08/29/24 16:01 Patient Tobacco Use Status Former Tobacco user 08/29/24 16:01 e-Cigarette/Vaping Use Never Used 08/29/24 16:01 PHQ-9: PHQ-9 Score PHQ-9: Total score 0 08/29/24 16:40 Depression Screening Interpretation: Negative Thrive Assessment: Date of Thrive Assessment Date Thrive assessed 08/29/24 08/29/24 16:01 Currently or been in a relationship where the following occur: No concerns reported Const General: no acute distress and alert HENMT Throat: Yes posterior oropharynx normal and Yes tonsils normal (no TP congestion) Neck Neck: Yes no lymphadenopathy and Yes supple Thyroid: Thyroid normal Resp Auscultation: clear to auscultation bilaterally, no rales and no wheezes Cardio Rate: regular rate Rhythm: regular rhythm Heart sounds: no murmurs GI Palpation (GI): Soft to palpation, Tenderness to palpation present (GI) (mild) in the LLQ, no guarding, not rigid and No Rebound tenderness present Auscultation: normal bowel sounds General: Yes no CVA tenderness Back/Spine/Pelvis Back: no CVA tenderness Thoracic/Lumbar Spine: lumbar spinal tenderness (radiating down into the left thigh at times) Skin Rashes: no rashes Extrem General: Yes no clubbing, cyanosis or edema Coding Level of Care Code Est Pt Level 4 (32121) Diagnoses Left lower quadrant abdominal pain R10.32 Degeneration of intervertebral disc of lumbar region with discogenic back pain and lower extremity pain M51.362 Disc-related pain type: discogenic back pain and lower extremity pain Allergic rhinitis, unspecified seasonality, unspecified trigger J30.9 Allergic rhinitis trigger: unspecified Allergic rhinitis seasonality: unspecified Additional Codes PHQ-9 - 38446 - PHQ-9 Billing: Yes ([id number]) Assessment & Plan Assessment & Plan (1) Left lower quadrant abdominal pain: Code(s): R10.32 - Left lower quadrant pain Category: Medical Plan: Patient is advised that his recent abdominal and pelvic CT done last month did not show any findings that can help explain his recurrent left lower abdominal pain He is advised that with his recurrent left low back pain, his recurrent abdominal pain may be discogenic pain from his lower back due to compression of the L5-S1 nerve root Will send him for an MRI of the lumbar spine for further evaluation and if his imaging study confirms an L5-S1 nerve root compression, will refer him to neurosurgery for further management (2) Lumbar degenerative disc disease: Code(s): M51.369 - Other intervertebral disc degeneration, lumbar region without mention of lumbar back pain or lower extremity pain Category: Medical Qualifiers: Disc-related pain type: discogenic back pain and lower extremity pain Qualified Code(s): M51.362 - Other intervertebral disc degeneration, lumbar region with discogenic back pain and lower extremity pain Plan: Reinforced activity and weight lifting restrictions Lumbar spine x-rays done back in 2020 revealed (+) moderate degenerative disc changes T12-L1 similar to 2017, borderline disc narrowing at L4-L5 and probable mild facet degeneration at L5-S1 With his recent recurrent lower abdominal pain/symptoms, I am suspecting that these may be discogenic in nature and will try to send patient for a lumbar spine MRI for further evaluation (3) Allergic rhinitis: Code(s): J30.9 - Allergic rhinitis, unspecified Category: Medical Qualifiers: Allergic rhinitis trigger: unspecified Allergic rhinitis seasonality: unspecified Qualified Code(s): J30.9 - Allergic rhinitis, unspecified Plan: Will send in again his Rx refill for his Budesonide 32 mcg nasal spray QD PRN to his pharmacy Plan Follow up as scheduled in October 2024 Orders: Orders MR lumbar spine wo con 08/29/24 M51.369 - Other intervertebral disc degener ation, lumbar region without mention of lumbar back pain or lower extremity pain, M54.16 - Radiculopathy, lumbar region Medications: Refilled budesonide 32 mcg/actuation administer into each nostril 1 spray intranasal QAM 8.43 mL 3RF
== END 2024-08-29 16:42 | disposition home or self-care (01) ==
LOC: HO.HMCH 15:55
PROVIDERS: PCP Internal Medicine; Visit Provider Internal Medicine
DX: R10.32 Left lower quadrant pain (principal); M51.362 Other intervertebral disc degeneration, lumbar region with discogenic back pain and lower extremity pain; J30.9 Allergic rhinitis, unspecified

== ENCOUNTER → 2024-08-29 15:54 | Outpatient (BNVA) | payer OTHER, SELFPAY | PROVIDERS: PCP Internal Medicine; Visit Provider Internal Medicine | DX: R10.32 Left lower quadrant pain (principal); M51.362 Other intervertebral disc degeneration, lumbar region with discogenic back pain and lower extremity pain; J30.9 Allergic rhinitis, unspecified | CPT/HCPCS: 96127 ==

== ENCOUNTER 2024-10-09 08:31 | Day surgery (SDC) | payer OTHER, SELFPAY ==
[2024-10-05 11:59] VITALS: BMI 33.7
--- NOTE | 2024-10-08 11:49 | HO.ANESPROP2 ---
Documented by User: Rolanda Page NP 10/08/24 11:49 HPI - Anesthesia Eval Consult details Narrative: 64yo M for Colonoscopy PMFSH Active Problems Active Problems: All Active Problems Left lower quadrant abdominal pain (Acute) Chronic left-sided lumbar radiculopathy (Acute) Lumbar degenerative disc disease (Acute) Constipation (Acute) Allergic rhinitis (Acute) Gastritis (Acute) Epistaxis (Acute) Bunion, right foot (Acute) Upper respiratory tract infection (Acute) Mixed hyperlipidemia (Acute) Personal history of colonic polyps (Acute) Anemia (Acute) Colon cancer screening (Acute) Obesity (BMI 30-39.9) (Acute) Vitamin D deficiency (Acute) Obstructive sleep apnea (Acute) Lumbar spondylosis (Acute) Hypertriglyceridemia (Acute) Primary osteoarthritis of left knee (Acute) Dizziness (Acute) Left knee pain (Acute) Low back pain (Acute) Acute sinusitis (Acute) Past Medical History Medical History Allergic rhinitis Mixed hyperlipidemia Obesity (BMI 30-39.9) Vitamin D deficiency Obstructive sleep apnea Lumbar spondylosis Hypertriglyceridemia Family History Family History Father Diabetes mellitus Hypertension Mother Cancer Surgical History Surgical History Hx of colonoscopy Social History Social History Housing: House Alcohol intake: never Patient Tobacco Use Status: Former Tobacco user e-Cigarette/Vaping Use: Never Used Advance Directives: No Advance Directives Information Provided: Yes service: No Current occupational status: employed Current occupational exposures/hazards: No Cognitive needs: No Hearing needs: No Vision needs: No Meds Allergies Allergy/AdvReac Type Severity Reaction Status Date / Time No Known Allergies Allergy Verified 08/29/24 16:38 [No Known Allergies*] Exam Height,Weight and Vital Signs: Height 5 ft 8 in Weight 100.471 kg Assessment and Plan Assessment Anesthesia Assessment: Chart Reviewed Documented by User: Vicky Montoya MD 10/09/24 09:30 [facility] Past Medical History Medical History Allergic rhinitis Mixed hyperlipidemia Obesity (BMI 30-39.9) Vitamin D deficiency Obstructive sleep apnea Lumbar spondylosis Hypertriglyceridemia Family History Family History Father Diabetes mellitus Hypertension Mother Cancer Family history of problems with anesthesia: No Surgical History Surgical History Hx of colonoscopy History of Problems with Anesthesia: No Social History Social History Housing: House Alcohol intake: never Patient Tobacco Use Status: Former Tobacco user e-Cigarette/Vaping Use: Never Used Advance Directives: No Advance Directives Information Provided: Yes service: No Current occupational status: employed Current occupational exposures/hazards: No Cognitive needs: No Hearing needs: No Vision needs: No Meds Allergies Allergy/AdvReac Type Severity Reaction Status Date / Time No Known Allergies Allergy Verified 08/29/24 16:38 [No Known Allergies*] Exam Airway Mallampati Class: II TM Dist: >3cm Neck ROM: Full Heart: rrr Lungs: cta Assessment and Plan Assessment Anesthesia Assessment: Anesthesia Plan Discussed Final Anesthetic Review Family History of Problems with Anesthesia: No History of Problems with Anesthesia: No NPO: Yes ASA Class: III ([place]) Final Preanesthetic Review: No Changes in Pt Med Stat, Meds/Allgs Chart Reviewed, Consent Obtained/Reviewed and Anes Risks/Benef Reviewed Patient Risk: Intermediate Procedure Risk: Low Anesthetic Plan Anesthetic Plan: MAC: Disposition: Standard PACU
[2024-10-09 09:34] VITALS: BP 148/79; PULSE 75; RESP 18; TEMP 37.6; O2SAT 96; BMI 33.4
--- NOTE | 2024-10-09 09:37 | MHC.SHP ---
Pre-Procedural Eval Section A - 24 Hr Update-Section A only Date of Service: 10/09/24 Section B - Complete if H&P > 30 days Chief Complaint: History of polyps Details of Present Illness: Mixed hyperlipidemia Obesity (BMI 30-39.9) Vitamin D deficiency Obstructive sleep apnea Lumbar spondylosis Hypertriglyceridemia Surgical History Hx of colonoscopy Present Medications: see Short Stay Collaborative assessment Allergies: Allergies Allergy/AdvReac Type Severity Reaction Status Date / Time No Known Allergies Allergy Verified 10/09/24 09:32 [No Known Allergies*] Review of Systems Review of Systems Comment: Ten point ROS negative Exam Exam Comment: Gen appear: No acute distress HEENT: no icterus Chest: No overt resp distress Abd: soft, nontender, nondistended Psych: Stable affect, answering questions appropriately Neuro: A/Ox3 noted to move all extremities spontaneously Ext: no peripheral edema Plan Diagnosis/Plan: Unchanged I have reviewed the history and physical and performed a pertinent physical examination on my patient. No changes have occurred unless specified. Time Spent With Patient Time: Total time managing care of this patient today ____ minutes.
[2024-10-09] MEDS: Lactated Ringers 1,000 ML 100 ML IVCONT (09:52)
--- NOTE | 2024-10-09 10:51 | P.OPN-COLO_ITS ---
Colonoscopy Operative Note Operative Note Date of Service: 10/09/24 Narrative: Procedure: Colonoscopy Indication: Personal history of polyps Endoscopist: Yaritza Macdonald MD Anesthesia Provider: Jerry Ramey CRNA Anesthesia type: MAC Instrument: Olympus [id number]-[id number] Consent: Indication, risks vs benefits, and alternatives were discussed with the patient who gave written informed consent to proceed. EKG, pulse, pulse oximetry and blood pressure were monitored throughout the procedure. Please see anesthesia flowsheet. Procedure: The patient was brought to the procedure room and placed in the left lateral decubitus position. IV medications were administered by the anesthesia provider in attendance. A digital rectal exam was performed which was abnormal due to finding of hemorrhoids. A distal attachment cap was affixed to the tip of the colonoscope which was then inserted through the anus and advanced through the colon to the cecum at 75 cm,and terminal ileum. Appendiceal orifice and ileocecal valve were identified. Mucosa was carefully examined under high definition white light as the instrument was slowly withdrawn in a retrograde panoramic fashion. Retroflexion was performed in rectum. The procedure was not difficult. There were no immediate obvious complications. The quality of the prep was BBPS: 2+2+2 = adequate Withdrawal time 13 minutes. Limitations: No limitations. Findings: Mucosa: Normal to cecum and terminal ileum. Protruding lesions: * 1 sessile polyp of size 5 mm in transverse colon. Cold snare polypectomy was performed. The polyp was completely removed and retrieved. * Large internal hemorrhoids without stigmata of recent bleeding. Impression: 1. Normal colon and terminal ileum mucosa 2. Total of 1 polyp removed 3. External and internal hemorrhoids Recommendations: - Follow path results. - Repeat colonoscopy in 7 years if polyp is an adenoma.
[2024-10-09 10:58] VITALS: BP 98/56; PULSE 69; RESP 16; TEMP 36.4; O2SAT 98
[2024-10-09 11:13] VITALS: BP 109/64; PULSE 62; RESP 18; TEMP 37.2; O2SAT 95
== END 2024-10-09 11:32 | disposition home or self-care (01) ==
PROVIDERS: PCP Internal Medicine; Visit Provider Internal Medicine
PROC: 0DJD8ZZ Inspection of Lower Intestinal Tract, Via Natural or Artificial Opening Endoscopic (ICD-10-PCS; CPT 45378; principal; 2024-10-09 10:10)
DX: Z12.11 Encounter for screening for malignant neoplasm of colon (principal); D12.3 Benign neoplasm of transverse colon; K64.8 Other hemorrhoids; K64.4 Residual hemorrhoidal skin tags; Z86.0101 Personal history of adenomatous and serrated colon polyps; E78.2 Mixed hyperlipidemia; D64.9 Anemia, unspecified; G47.33 Obstructive sleep apnea (adult) (pediatric); Z99.89 Dependence on other enabling machines and devices; Z79.899 Other long term (current) drug therapy
CPT/HCPCS: 45385; 88305; J2704

== ENCOUNTER → 2024-10-09 08:31 | Outpatient (BNV) | payer OTHER, SELFPAY | PROVIDERS: PCP Internal Medicine; Visit Provider Internal Medicine | DX: Z12.11 Encounter for screening for malignant neoplasm of colon (principal); Z86.0100 Personal history of colon polyps, unspecified; D12.3 Benign neoplasm of transverse colon; K64.8 Other hemorrhoids | CPT/HCPCS: 45385 ==

== ENCOUNTER 2024-10-18 14:10 | Outpatient (REF) | payer OTHER, SELFPAY ==
[2024-10-18 14:24] LABS: MANUAL DIFF FLAG NO
[2024-10-18 15:47] LABS: Basophils Absolute Auto 0.1 X10*3/uL (0.0-0.2); Basophils Percent Auto 1.5 % (0-2); Eosinophils Absolute Auto 0.2 X10*3/uL (0.0-0.4); Eosinophils Percent Auto 3.5 % (0-4); Hematocrit 39.6 % (42.0-52.0); Hemoglobin 13.1 g/dl (14.0-18.0); Imm Gran Abs Auto 0.01 X10*3/uL (0.00-0.03); Imm Gran Pct Auto 0.2 % (0.0-0.4); Lymphocytes Absolute Auto 1.9 X10*3/uL (1.2-4.9); Mean Corpuscular HGB Conc 33.1 g/dl (31.0-36.0); Mean Corpuscular Hemoglobin 28.1 pg (27.0-33.0); Mean Platelet Volume 9.6 fL (9.4-12.4); Monocytes Absolute Auto 0.6 X10*3/uL (0.1-1.2); Monocytes Percent Auto 10.7 % (2-11); Neutrophils Absolute Auto 2.7 x10*3/uL (2.0-8.3); Neutrophils Percent Auto 49.1 % (45-73); Platelet Count 288 X10*3/uL (160-400); Red Blood Count 4.66 X10*6/uL (4.60-5.80); Red Cell Distribution Width 14.5 % (11.0-16.0); White Blood Count 5.5 X10*3/uL (4.8-10.8)
[2024-10-18 16:26] LABS: Iron 59 mcg/dL (45-160); Percent Iron Saturation 25 % (15-50); Total Iron Binding Capacity 234 mcg/dL (228-428); Unsaturated Iron Binding 175 ug/dL
[2024-10-18 16:40] LABS: Ferritin 193 ng/mL (20-250)
[2024-10-18 16:48] LABS: Folate 16.7 ng/mL (> or = 4.0); Vitamin B12 535 pg/mL (200-900)
== END 2024-10-18 14:11 | disposition home or self-care (01) ==
LOC: HO.LAB 14:10
PROVIDERS: Absent Provider Internal Medicine; PCP Internal Medicine; Visit Provider Internal Medicine
DX: D64.9 Anemia, unspecified (principal)
CPT/HCPCS: 36415; 82607; 82728; 82746; 83540; 85025

== ENCOUNTER 2024-11-16 15:59 | Outpatient (AMB) | payer OTHER, SELFPAY ==
[2024-11-16 16:19] VITALS: BP 112/68; PULSE 75; O2SAT 95; BMI 33.2
--- NOTE | 2024-11-16 16:19 | MHC.PC.OV ---
Vital Signs 11/16/24 16:19 Height 5 ft 8 in Weight 218 lb 2 oz BMI 33.2 BP 112/68 Blood Pressure Location Lt brachial Position Sitting Pulse 75 Pulse Source Pulse Oximeter Pulse Oximetry (%) 95 Oxygen Delivery Method Room Air Intake Visit Reasons: 4 months follow up Airplane Fueler Required: No Accompanied by: Self / Same As Patient Allergies No Known Allergies [No Known Allergies*] Allergy (Verified 11/16/24 16:55) Medication List - Last Reconciled 11/16/24 by Gilmar Jacobs MD atorvastatin 10 mg PO BEDTIME budesonide 32 mcg/actuation 1 spray intranasal QAM [CPAP device and all related supplies As directed] meclizine 25 mg PO DAILY PRN nabumetone 500 mg PO BID PRN 30 days omeprazole 20 mg PO BID 30 days Tobacco use date assessed: 11/16/24 Dental Screening Dental Screen Date: 11/16/24 Did you have a dental visit in the last 12 months?: Yes Did you have a dental problem in the last 6 months where you did not have access to dental care?: No Was dental information given to patient?: Patient has dentist HPI 4 months follow up HPI Details Patient comes in today for his follow up visit States that he feels okay He denies any headaches or dizziness Denies any chest pains, no SOB No nausea/vomiting, no abdominal pain No change in bowel habits noted States that he had his colonoscopy done last month and recalls being advised by GI that he has been anemic for a while now and to discuss this further with his PCP He was not able to get his follow-up labs done prior to his appointment today - states that he will try to get them done tomorrow morning PFSH Medical History Allergic rhinitis Mixed hyperlipidemia Obesity (BMI 30-39.9) Vitamin D deficiency Obstructive sleep apnea Lumbar spondylosis Hypertriglyceridemia Surgical History (Updated 11/17/24 @ 22:03 by Gilmar Jacobs MD) Hx of colonoscopy Family History Father Diabetes mellitus Hypertension Mother Cancer Social History Housing: House Alcohol intake: never Patient Tobacco Use Status: Former Tobacco user e-Cigarette/Vaping Use: Never Used service: No Current occupational status: employed Current occupational exposures/hazards: No Cognitive needs: No Hearing needs: No Vision needs: No Questionnaire PHQ-9 Over the last 2 weeks, how often have you been bothered by any of the following problems? 1. Little interest or pleasure in doing things: not at all 2. Feeling down, depressed, or hopeless: not at all 3. Trouble falling or staying asleep, or sleeping too much: not at all 4. Feeling tired or having little energy: not at all 5. Poor appetite or overeating: not at all 6. Feeling bad about yourself - or that you are a failure or have let yourself or your family down: not at all 7. Trouble concentrating on things, such as reading the newspaper or watching television: not at all 8. Moving or speaking so slowly that other people could have noticed. Or the opposite - being so fidgety or restless that you have been moving around a lot more than usual: not at all 9. Thoughts that you would be better off or of hurting yourself in some way: not at all Total score: 0 Depression Screening Interpretation: Negative Depression Screening Done: Yes 02494 - PHQ-9 Billing: Yes Source: Developed by Drs. Angus Hardy, Johanna Boswell, Neto Bear and colleagues, with an educational jacques from [employer]. Thrive Questionnaire Date Thrive assessed: 11/16/24 I am a: Patient What is your living situation today?: I have a steady place to live Within the past 12 months, did the food you bought not last and you didn't have the money to get more?: Never true Within the past 12 months, did you worry whether your food would run out before you got money to buy more?: Never true Do you have trouble paying for medicines?: No Do you have trouble getting transportation to medical appointments?: No Do you have trouble paying your heating and electricity bill?: No Do you have trouble taking care of your child, family member or friend?: No Do you have trouble with day-to-day activities such as bathing, preparing meals, shopping, managing finances, etc.?: No Are you currently unemployed and looking for a job?: No Are you interested in more education?: No Please select the resources that you would like help with: None Currently or been in a relationship where the following occur: No concerns reported THRIVE Score: 0 AUDIT C Alcohol Use Questionnaire (AUDIT-C) 1. How often do you have a drink containing alcohol?: Never 2. How many drinks containing alcohol do you have on a typical day when you are drinking?: 1 or 2 3. How often do you have six or more drinks on one occasion?: Never Total Score: 0 Score Reviewed/Action Taken: Yes RADHA-7 AMB Questionnaire RADHA-7 Date RADHA - 7 assessed: 11/16/24 Feeling nervous, anxious, or on edge: 0 = Not at all Not being able to stop or control worryin = Not at all Worrying too much about different things: 0 = Not at all Trouble relaxin = Not at all Being so restless that it is hard to sit still: 0 = Not at all Becoming easily annoyed or irritable: 0 = Not at all Feeling afraid as if something awful might happen: 0 = Not at all Total RADHA-7 score (0-4 normal; 5-9 mild; 10-14 moderate; 15-21 severe): 0 Source: Developed by Drs. Angus Hardy, Johanna Boswell, Neto Bear and colleagues, with an educational jacques from [employer]. Review of Systems Const Denies chills, Denies fatigue, Denies fever(s) and Denies headache(s) ENT Denies dysphagia, Denies dizziness, Denies otalgia, Denies headache(s), Denies neck pain, Denies odynophagia and Denies sore throat Card Denies chest pain, Denies palpitations and Denies dyspnea Resp Denies chest congestion, Denies cough and Denies dyspnea GI Reports abdominal pain (on and off, over the left lower abdomen), Denies constipation, Denies dysphagia, Denies heartburn, Denies diarrhea, Denies nausea, Denies odynophagia and Denies vomiting Denies dysuria, Denies nocturia and Denies urinary frequency Musc Reports back pain (over the lower back - chronic), Denies arthralgias, Denies neck pain and Reports radiating pain into limb (into the left thigh) Skin/Breast Denies rash Neuro Denies dizziness and Denies headache(s) Endo Denies fatigue and Denies palpitations Physical exam (Primary Care) Vital Signs: Last Vital Signs Pulse 75 11/16/24 16:19 BP 112/68 11/16/24 16:19 Pulse Ox 95 11/16/24 16:19 Oxygen Delivery Method Room Air 11/16/24 16:19 BMI result Body Mass Index 33.2 Tobacco/Smoking Status: Tobacco use Status Tobacco use date assessed 11/16/24 11/16/24 16:35 Patient Tobacco Use Status Former Tobacco user 11/16/24 16:29 e-Cigarette/Vaping Use Never Used 11/16/24 16:29 PHQ-9: PHQ-9 Score PHQ-9: Total score 0 11/17/24 10:18 Depression Screening Interpretation: Negative Thrive Assessment: Date of Thrive Assessment Date Thrive assessed 11/16/24 11/16/24 16:35 Currently or been in a relationship where the following occur: No concerns reported Const General: no acute distress and alert HENMT Throat: Yes posterior oropharynx normal and Yes tonsils normal (no TP congestion) Neck Neck: Yes no lymphadenopathy and Yes supple Thyroid: Thyroid normal Resp Auscultation: clear to auscultation bilaterally, no rales and no wheezes Cardio Rate: regular rate Rhythm: regular rhythm Heart sounds: no murmurs GI Palpation (GI): Soft to palpation, Tenderness to palpation present (GI) (mild) in the LLQ, no guarding, not rigid and No Rebound tenderness present Auscultation: normal bowel sounds General: Yes no CVA tenderness Back/Spine/Pelvis Back: no CVA tenderness Thoracic/Lumbar Spine: lumbar spinal tenderness (radiating down into the left thigh at times) Skin Rashes: no rashes Extrem General: Yes no clubbing, cyanosis or edema Coding Level of Care Code Est Pt Level 4 (62802) Diagnoses Left lower quadrant abdominal pain R10.32 Constipation, unspecified constipation type K59.00 Constipation type: unspecified constipation type Degeneration of intervertebral disc of lumbar region with discogenic back pain and lower extremity pain M51.362 Disc-related pain type: discogenic back pain and lower extremity pain Mixed hyperlipidemia E78.2 Obstructive sleep apnea G47.33 Anemia, normocytic normochromic D64.9 Allergic rhinitis, unspecified seasonality, unspecified trigger J30.9 Allergic rhinitis trigger: unspecified Allergic rhinitis seasonality: unspecified Vitamin D deficiency E55.9 Primary osteoarthritis of left knee M17.12 Obesity (BMI 30-39.9) E66.9 Additional Codes PHQ-9 - 21743 - PHQ-9 Billing: Yes ([id number]) Assessment & Plan Assessment & Plan (1) Left lower quadrant abdominal pain: Code(s): R10.32 - Left lower quadrant pain Category: Medical Plan: Patient is again advised that his recurrent left lower abdominal pain may actually be discogenic/referred pain from his lower back due to compression of the L5-S1 nerve root His abdominal and pelvic CT done back in July 2024 did not show any findings to help explain his recurrent left lower abdominal pain We have ordered an MRI of the lumbar spine for further evaluation back in August 2024 and if his imaging study confirms an L5-S1 nerve root compression, will likely need to refer him to neurosurgery for further management but it appears that his insurance is not agreeing to cover his proposed imaging study He also had a colonoscopy done back on 10/09/2024 that came out normal except for a polyp that came out as a tubular adenoma on pathology (2) Constipation: Code(s): K59.00 - Constipation, unspecified Category: Medical Qualifiers: Constipation type: unspecified constipation type Qualified Code(s): K59.00 - Constipation, unspecified Plan: Patient is again encouraged to continue to increase his oral fluid and dietary fiber intake His colonoscopy done on 10/09/2024 came out normal except for (+) tubular adenoma and (+) external and internal hemorrhoids (3) Lumbar degenerative disc disease: Code(s): M51.369 - Other intervertebral disc degeneration, lumbar region without mention of lumbar back pain or lower extremity pain Category: Medical Qualifiers: Disc-related pain type: discogenic back pain and lower extremity pain Qualified Code(s): M51.362 - Other intervertebral disc degeneration, lumbar region with discogenic back pain and lower extremity pain Plan: Reinforced activity and weight lifting restrictions Lumbar spine x-rays done back in 2019 revealed (+) moderate degenerative disc changes T12-L1 similar to his findings in 2017, borderline disc narrowing at L4-L5 and probable mild facet degeneration at L5-S1 I suspect that his recurrent lower abdominal pain/symptoms may be discogenic in nature and have tried sending patient for a lumbar spine MRI for further evaluation but his insurance has not yet approved his MRI so far (4) Mixed hyperlipidemia: Code(s): E78.2 - Mixed hyperlipidemia Category: Medical Plan: Patient was not able to get his follow up labs done prior to his appointment today and states that he will try to get these done tomorrow morning Reinforced low cholesterol diet Continue Atorvastatin 10 mg QD Will have patient recheck his labs and fasting lipids in 4 months for follow up (5) Obstructive sleep apnea: Code(s): G47.33 - Obstructive sleep apnea (adult) (pediatric) Category: Medical Plan: Continue using his CPAP device when sleeping at night daily Patient reports that he continues to benefit from regular use of his CPAP device (6) Anemia, normocytic normochromic: Code(s): D64.9 - Anemia, unspecified Category: Medical Plan: Patient has chronic anemia on his labs over the last few years He has no RBC microcytosis or hypochromia His was sent for anemia workups by GI last month - his iron levels were normal and vitamin B12 level was normal Will send him for hemoglobin electrophoresis for further evaluation - patient is advised that he can get this done together with his previously ordered labs tomorrow (7) Allergic rhinitis: Code(s): J30.9 - Allergic rhinitis, unspecified Category: Medical Qualifiers: Allergic rhinitis trigger: unspecified Allergic rhinitis seasonality: unspecified Qualified Code(s): J30.9 - Allergic rhinitis, unspecified Plan: Continue Budesonide 32 mcg nasal spray QD PRN (8) Vitamin D deficiency: Code(s): E55.9 - Vitamin D deficiency, unspecified Category: Medical Plan: Continue Vitamin D3 2000 units QD (9) Primary osteoarthritis of left knee: Code(s): M17.12 - Unilateral primary osteoarthritis, left knee Category: Medical Plan: X-rays of the left knee done back in October 2022 revealed (+) minimal OA changes of the medial and patellofemoral joint space compartments; no fracture, dislocation or joint effusion is seen Continue Nabumetone 500 mg BID PRN with food for pain Will consider referring him to orthopedics for further management if his knee pain progresses (10) Obesity (BMI 30-39.9): Code(s): E66.9 - Obesity, unspecified Category: Medical Plan: Reinforced diet/exercise as tolerated/lose weight Plan Follow up in 4 months Orders: Orders Comprehensive [facility]. Panel Fast 4 Months E78.00 - Pure hypercholesterolemia, unspecified Lipid Panel 4 Months E78.00 - Pure hypercholesterolemia, unspecified Hemoglobin Electrophoresis 11/16/24 R71.8 - Other abnormality of red blood cells
== END 2024-11-16 17:06 | disposition home or self-care (01) ==
PROVIDERS: PCP Internal Medicine; Visit Provider Internal Medicine
DX: R10.32 Left lower quadrant pain (principal); K59.00 Constipation, unspecified; Z68.33 Body mass index [BMI] 33.0-33.9, adult; E66.9 Obesity, unspecified; M51.362 Other intervertebral disc degeneration, lumbar region with discogenic back pain and lower extremity pain; E78.2 Mixed hyperlipidemia; G47.33 Obstructive sleep apnea (adult) (pediatric); D64.9 Anemia, unspecified; J30.9 Allergic rhinitis, unspecified; E55.9 Vitamin D deficiency, unspecified; M17.12 Unilateral primary osteoarthritis, left knee

== ENCOUNTER → 2024-11-16 15:59 | Outpatient (BNVA) | payer OTHER, SELFPAY | PROVIDERS: PCP Internal Medicine; Visit Provider Internal Medicine | DX: R10.32 Left lower quadrant pain (principal); K59.00 Constipation, unspecified; M51.362 Other intervertebral disc degeneration, lumbar region with discogenic back pain and lower extremity pain; E78.2 Mixed hyperlipidemia; G47.33 Obstructive sleep apnea (adult) (pediatric); D64.9 Anemia, unspecified; J30.9 Allergic rhinitis, unspecified; E55.9 Vitamin D deficiency, unspecified; M17.12 Unilateral primary osteoarthritis, left knee; E66.9 Obesity, unspecified; Z68.33 Body mass index [BMI] 33.0-33.9, adult; Z79.899 Other long term (current) drug therapy; Z99.89 Dependence on other enabling machines and devices | CPT/HCPCS: 96127 ==

== ENCOUNTER 2025-01-19 07:49 | Outpatient (REF) | payer OTHER, SELFPAY ==
[2025-01-19 09:22] LABS: Alanine Aminotransferase 41 U/L (0-40); Albumin Level 4.2 g/dL (3.5-5.0); Alkaline Phosphatase 59 U/L (39-117); Anion Gap 9 (12-20); Aspartate Amino Transferase 26 U/L (5-37); Bilirubin Total 0.6 mg/dL (0.0-1.0); Blood Urea Nitrogen 19 mg/dL (9-16); Calcium 9.3 mg/dL (8.4-10.2); Carbon Dioxide 25 mmol/L (22-29); Chloride 110 mmol/L (96-108); Cholesterol 165 mg/dL (<200); Estimated Glomerular Filt Rate > 60; Glucose Fasting 95 mg/dL (60-99); HDL Cholesterol 37 mg/dL (>40); LDL Cholesterol Calculated 88 mg/dL (<100); Potassium 4.2 mmol/L (3.3-5.1); Sodium 140 mmol/L (135-145); Total Protein 7.1 g/dL (6.5-8.0); Triglycerides 203 mg/dL (<150)
[2025-01-22 13:28] LABS: Hematocrit 42.4 % (38.5-50.0); Hemoglobin 13.6 g/dL (13.2-17.1); MCH 27.7 pg (27.0-33.0); MCV 86.4 fL (80.0-100.0); RBC 4.91 Million/uL (4.20-5.80); RDW 14.5 % (11.0-15.0)
== END 2025-01-19 07:50 | disposition home or self-care (01) ==
LOC: HO.LAB 07:49
PROVIDERS: PCP Internal Medicine; Visit Provider Internal Medicine
DX: E78.00 Pure hypercholesterolemia, unspecified (principal); R71.8 Other abnormality of red blood cells
CPT/HCPCS: 36415; 80053; 80061; 83020; 85014; 85018; 85041

== ENCOUNTER 2025-03-19 15:53 | Outpatient (AMB) | payer OTHER, SELFPAY ==
[2025-03-19 16:00] VITALS: BP 118/62; PULSE 68; O2SAT 95; BMI 33.8
--- NOTE | 2025-03-19 16:00 | A.OFFPC_ITS ---
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: No Accompanied by: Self / Same As Patient Allergies Seasonal Allergies Allergy (Verified 03/19/25 16:41) Cough Medication List - Last Reconciled 03/19/25 by Gilmar Jacobs MD atorvastatin 10 mg PO BEDTIME budesonide 32 mcg/actuation 1 spray intranasal QAM [CPAP device and all related supplies As directed] meclizine 25 mg PO DAILY PRN nabumetone 500 mg PO BID PRN 30 days omeprazole 20 mg PO BID 30 days Tobacco use date assessed: 11/16/24 Dental Screening Dental Screen Date: 11/16/24 Did you have a dental visit in the last 12 months?: Yes Did you have a dental problem in the last 6 months where you did not have access to dental care?: No Was dental information given to patient?: Patient has dentist HPI follow up HPI Details Patient comes in today for his follow up visit States that he feels okay He denies any headaches or dizziness Denies any chest pains, no increased SOB No nausea/vomiting, no abdominal pain No change in bowel habits noted He had his follow up labs done a couple of months ago - to discuss his results [facility] Medical History Allergic rhinitis Mixed hyperlipidemia Obesity (BMI 30-39.9) Vitamin D deficiency Obstructive sleep apnea Lumbar spondylosis Hypertriglyceridemia Surgical History Hx of colonoscopy Family History Father Diabetes mellitus Hypertension Mother Cancer Social History Household Members: Spouse Housing: House Alcohol intake: never Patient Tobacco Use Status: Former Tobacco user Tobacco use type: Cigarette e-Cigarette/Vaping Use: Never Used service: No Current occupational status: employed Current occupational exposures/hazards: No Sexual orientation: Straight/Heterosexual Gender identity: Male Cognitive needs: No Hearing needs: No Vision needs: No Questionnaire PHQ-9 Over the last 2 weeks, how often have you been bothered by any of the following problems? 1. Little interest or pleasure in doing things: not at all 2. Feeling down, depressed, or hopeless: not at all 3. Trouble falling or staying asleep, or sleeping too much: not at all 4. Feeling tired or having little energy: not at all 5. Poor appetite or overeating: not at all 6. Feeling bad about yourself - or that you are a failure or have let yourself or your family down: not at all 7. Trouble concentrating on things, such as reading the newspaper or watching television: not at all 8. Moving or speaking so slowly that other people could have noticed. Or the opposite - being so fidgety or restless that you have been moving around a lot more than usual: not at all 9. Thoughts that you would be better off or of hurting yourself in some way: not at all Total score: 0 Depression Screening Interpretation: Negative Depression Screening Done: Yes 98066 - PHQ-9 Billing: Yes Source: Developed by Drs. Angus Hardy, Johanna Boswell, Neto Bear and colleagues, with an educational jacques from [employer]. Thrive Questionnaire Date Thrive assessed: 03/19/25 I am a: Patient What is your living situation today?: I have a steady place to live Within the past 12 months, did the food you bought not last and you didn't have the money to get more?: Never true Within the past 12 months, did you worry whether your food would run out before you got money to buy more?: Never true Do you have trouble paying for medicines?: No Do you have trouble getting transportation to medical appointments?: No Do you have trouble paying your heating and electricity bill?: No Do you have trouble taking care of your child, family member or friend?: No Do you have trouble with day-to-day activities such as bathing, preparing meals, shopping, managing finances, etc.?: No Are you currently unemployed and looking for a job?: No Are you interested in more education?: No Please select the resources that you would like help with: None Currently or been in a relationship where the following occur: No concerns reported THRIVE Score: 0 AUDIT C Alcohol Use Questionnaire (AUDIT-C) 1. How often do you have a drink containing alcohol?: Never 2. How many drinks containing alcohol do you have on a typical day when you are drinking?: 1 or 2 3. How often do you have six or more drinks on one occasion?: Never Total Score: 0 Score Reviewed/Action Taken: Yes RADHA-7 AMB Questionnaire RADHA-7 Date RADHA - 7 assessed: 11/16/24 Source: Developed by Drs. Angus Hardy, Johanan Boswell, Neto Bear and colleagues, with an educational jacques from [employer]. Review of Systems Const Denies chills, Denies fatigue, Denies fever(s) and Denies headache(s) ENT Denies dysphagia, Denies dizziness, Denies otalgia, Denies headache(s), Denies neck pain, Denies odynophagia and Denies sore throat Card Denies chest pain, Denies palpitations and Denies dyspnea Resp Denies chest congestion, Denies cough and Denies dyspnea GI Reports abdominal pain (on and off, over the left lower abdomen), Denies constipation, Denies dysphagia, Denies heartburn, Denies diarrhea, Denies nausea, Denies odynophagia and Denies vomiting Denies difficulty urinating, Denies dysuria, Denies nocturia and Denies urinary frequency Musc Reports back pain (over the lower back - chronic), Denies arthralgias, Denies neck pain and Reports radiating pain into limb (into the left thigh) Skin/Breast Denies rash Neuro Denies dizziness and Denies headache(s) Endo Denies fatigue and Denies palpitations Physical exam (Primary Care) Vital Signs: Last Vital Signs Pulse 68 03/19/25 16:00 BP 118/62 03/19/25 16:00 Pulse Ox 95 03/19/25 16:00 Oxygen Delivery Method Room Air 03/19/25 16:00 BMI result Body Mass Index 33.8 Tobacco/Smoking Status: Tobacco use Status Tobacco use date assessed 11/16/24 03/19/25 16:05 Patient Tobacco Use Status Former Tobacco user 03/19/25 16:05 Tobacco use type Cigarette 03/19/25 16:05 e-Cigarette/Vaping Use Never Used 03/19/25 16:05 Depression Screening Interpretation: Negative Thrive Assessment: Date of Thrive Assessment Date Thrive assessed 11/16/24 03/19/25 16:05 Currently or been in a relationship where the following occur: No concerns reported Const General: no acute distress and alert HENMT Throat: Yes posterior oropharynx normal and Yes tonsils normal (no TP congestion) Neck Neck: Yes supple and No lymphadenopathy Thyroid: Thyroid normal Resp Auscultation: clear to auscultation bilaterally, no rales and no wheezes Cardio Rate: regular rate Rhythm: regular rhythm Heart sounds: no murmurs GI Palpation (GI): Soft to palpation, Tenderness to palpation present (GI) (mild) in the LLQ, no guarding, not rigid and No Rebound tenderness present Auscultation: normal bowel sounds General: Yes no CVA tenderness Back/Spine/Pelvis Back: no CVA tenderness Thoracic/Lumbar Spine: lumbar spinal tenderness (radiating down into the left thigh at times) Skin Rashes: no rashes Extrem General: Yes no clubbing, cyanosis or edema Results Reviewed Results Reviewed: Laboratory Tests 10/18/24 01/19/25 14:22 08:23 WBC 5.5 Hgb 13.1 L Hgb (Send Out) 13.6 Hct 39.6 L Hct (Send Out) 42.4 Plt Count 288 Sodium 140 Potassium 4.2 Creatinine 0.81 Estimated GFR > 60 Fasting Glucose 95 Calcium 9.3 D AST 26 ALT 41 H Triglycerides 203 H Cholesterol 165 LDL Cholesterol, Calc 88 HDL Cholesterol 37 L Coding Level of Care Code Est Pt Level 4 (92789) Diagnoses Left lower quadrant abdominal pain R10.32 Degeneration of intervertebral disc of lumbar region with discogenic back pain and lower extremity pain M51.362 Disc-related pain type: discogenic back pain and lower extremity pain Constipation, unspecified constipation type K59.00 Constipation type: unspecified constipation type Mixed hyperlipidemia E78.2 Obstructive sleep apnea G47.33 Anemia, normocytic normochromic D64.9 Allergic rhinitis, unspecified seasonality, unspecified trigger J30.9 Allergic rhinitis trigger: unspecified Allergic rhinitis seasonality: unspecified Vitamin D deficiency E55.9 Primary osteoarthritis of left knee M17.12 Obesity (BMI 30-39.9) E66.9 Additional Codes PHQ-9 - 32037 - PHQ-9 Billing: Yes ([id number]) Assessment & Plan Assessment & Plan (1) Left lower quadrant abdominal pain: Code(s): R10.32 - Left lower quadrant pain Category: Medical Plan: Patient is again advised that his recurrent left lower abdominal pain may actually be discogenic/referred pain from his lower back due to compression of the L5-S1 nerve root His abdominal and pelvic CT done back in July 2024 did not show any findings to explain his recurrent left lower abdominal pain We have ordered an MRI of the lumbar spine for further evaluation back in August 2024 and if his imaging study confirms an L5-S1 nerve root compression, will likely need to refer him to neurosurgery for further management but it appears that his insurance is not agreeing to cover the proposed imaging study He also had a colonoscopy done back on 10/09/2024 that came out normal except for a polyp that came out as a tubular adenoma on pathology (2) Lumbar degenerative disc disease: Code(s): M51.369 - Other intervertebral disc degeneration, lumbar region without mention of lumbar back pain or lower extremity pain Category: Medical Qualifiers: Disc-related pain type: discogenic back pain and lower extremity pain Qualified Code(s): M51.362 - Other intervertebral disc degeneration, lumbar region with discogenic back pain and lower extremity pain Plan: Reinforced activity and weight lifting restrictions Lumbar spine x-rays done back in 2019 revealed (+) moderate degenerative disc changes T12-L1 similar to his findings in 2017, borderline disc narrowing at L4- L5 and probable mild facet degeneration at L5-S1 I suspect that his recurrent lower abdominal pain/symptoms may be discogenic in nature and have tried sending patient for a lumbar spine MRI for further evaluation but his insurance did not approve his MRI (3) Constipation: Code(s): K59.00 - Constipation, unspecified Category: Medical Qualifiers: Constipation type: unspecified constipation type Qualified Code(s): K59.00 - Constipation, unspecified Plan: Patient is again encouraged to continue to increase his oral fluid and dietary fiber intake His colonoscopy done on 10/09/2024 came out normal except for (+) tubular adenoma and (+) external and internal hemorrhoids (4) Mixed hyperlipidemia: Code(s): E78.2 - Mixed hyperlipidemia Category: Medical Plan: Results of his labs done a couple of months ago reviewed and discussed with patient Reinforced low cholesterol diet Continue Atorvastatin 10 mg QD Will have patient recheck his labs and fasting lipids in 4 months for follow up (5) Obstructive sleep apnea: Code(s): G47.33 - Obstructive sleep apnea (adult) (pediatric) Category: Medical Plan: Continue using his CPAP device when sleeping at night daily Patient reports that he continues to benefit from regular use of his CPAP device Follow up with Sleep Medicine as scheduled (6) Anemia, normocytic normochromic: Code(s): D64.9 - Anemia, unspecified Category: Medical Plan: Patient has chronic anemia on his labs over the last few years He has no RBC microcytosis or hypochromia His was sent for anemia workups by GI last month - his iron levels were normal and vitamin B12 level was normal Hemoglobin electrophoresis was also normal He was referred to and seen by hematology recently and was advised to just continue monitoring his CBC regularly (7) Allergic rhinitis: Code(s): J30.9 - Allergic rhinitis, unspecified Category: Medical Qualifiers: Allergic rhinitis trigger: unspecified Allergic rhinitis seasonality: unspecified Qualified Code(s): J30.9 - Allergic rhinitis, unspecified Plan: Continue Budesonide 32 mcg nasal spray QD PRN (8) Vitamin D deficiency: Code(s): E55.9 - Vitamin D deficiency, unspecified Category: Medical Plan: Continue Vitamin D3 2000 units QD (9) Primary osteoarthritis of left knee: Code(s): M17.12 - Unilateral primary osteoarthritis, left knee Category: Medical Plan: X-rays of the left knee done back in October 2022 revealed (+) minimal OA changes of the medial and patellofemoral joint space compartments; no fracture, dislocation or joint effusion is seen Continue Nabumetone 500 mg BID PRN with food for pain Will consider referring him to orthopedics for further management if his knee pain progresses (10) Obesity (BMI 30-39.9): Code(s): E66.9 - Obesity, unspecified Category: Medical Plan: Reinforced diet/exercise as tolerated/lose weight Plan Follow up in 4 months Orders: Orders Complete Blood Count Auto Diff 4 Months D64.9 - Anemia, unspecified Comprehensive [place]. Panel Fast 4 Months E78.00 - Pure hypercholesterolemia, unspecified Lipid Panel 4 Months E78.00 - Pure hypercholesterolemia, unspecified TSH reflex Free T4 4 Months E78.00 - Pure hypercholesterolemia, unspecified UA CC w/rflx Micro + Cult 4 Months R30.0 - Dysuria
== END 2025-03-19 16:50 | disposition home or self-care (01) ==
LOC: HO.HMCH 15:54
PROVIDERS: PCP Internal Medicine; Visit Provider Internal Medicine
DX: R10.32 Left lower quadrant pain (principal); M51.362 Other intervertebral disc degeneration, lumbar region with discogenic back pain and lower extremity pain; E66.9 Obesity, unspecified; Z68.33 Body mass index [BMI] 33.0-33.9, adult; K59.00 Constipation, unspecified; E78.2 Mixed hyperlipidemia; G47.33 Obstructive sleep apnea (adult) (pediatric); D64.9 Anemia, unspecified; J30.9 Allergic rhinitis, unspecified; E55.9 Vitamin D deficiency, unspecified; M17.12 Unilateral primary osteoarthritis, left knee

== ENCOUNTER → 2025-03-19 15:53 | Outpatient (BNVA) | payer OTHER, SELFPAY | PROVIDERS: PCP Internal Medicine; Visit Provider Internal Medicine | DX: R10.32 Left lower quadrant pain (principal); M51.362 Other intervertebral disc degeneration, lumbar region with discogenic back pain and lower extremity pain; K59.00 Constipation, unspecified; E78.2 Mixed hyperlipidemia; G47.33 Obstructive sleep apnea (adult) (pediatric); D64.9 Anemia, unspecified; J30.9 Allergic rhinitis, unspecified; E55.9 Vitamin D deficiency, unspecified; M17.12 Unilateral primary osteoarthritis, left knee; E66.9 Obesity, unspecified; Z68.33 Body mass index [BMI] 33.0-33.9, adult | CPT/HCPCS: 96127 ==

== ENCOUNTER 2025-08-24 07:10 | Outpatient (REF) | payer OTHER, SELFPAY ==
[2025-08-24 07:34] LABS: MANUAL DIFF FLAG NO
[2025-08-24 07:41] LABS: Hematocrit 42.8 % (42.0-52.0); Hemoglobin 13.9 g/dl (14.0-18.0); Imm Gran Abs Auto 0.03 X10*3/uL (0.00-0.03); Imm Gran Pct Auto 0.6 % (0.0-0.4); Lymphocytes Absolute Auto 2.0 X10*3/uL (1.2-4.9); Mean Corpuscular HGB Conc 32.5 g/dl (31.0-36.0); Mean Corpuscular Hemoglobin 27.4 pg (27.0-33.0); Mean Corpuscular Volume 84.4 fL (80.0-98.0); NRBC Abs Auto 0.000 X10*3/uL (0.0-0.012); NRBC Pct Auto 0.0 /100WBC (0.0-0.2); Platelet Count 266 X10*3/uL (160-400); Red Blood Count 5.07 X10*6/uL (4.60-5.80); White Blood Count 5.4 X10*3/uL (4.8-10.8)
[2025-08-24 08:19] LABS: Appearance Urine Clear; Glucose Urine UA Negative (Negative); PH 6.0 (5.0-9.0); Specific Gravity - Urine 1.020 (1.005-1.025)
[2025-08-24 08:22] LABS: Alanine Aminotransferase 49 U/L (0-40); Albumin Level 4.6 g/dL (3.5-5.0); Alkaline Phosphatase 71 U/L (39-117); Anion Gap 12 (12-20); Aspartate Amino Transferase 40 U/L (5-37); Blood Urea Nitrogen 20 mg/dL (9-16); Calcium 9.2 mg/dL (8.4-10.2); Carbon Dioxide 26 mmol/L (22-29); Chloride 106 mmol/L (96-108); Cholesterol 190 mg/dL (<200); Estimated Glomerular Filt Rate > 60; HDL Cholesterol 42 mg/dL (>40); Potassium 4.2 mmol/L (3.3-5.1); Sodium 140 mmol/L (135-145); Total Protein 7.5 g/dL (6.5-8.0); Triglycerides 217 mg/dL (<150)
== END 2025-08-24 07:11 | disposition home or self-care (01) ==
LOC: HO.LAB 07:10
PROVIDERS: PCP Internal Medicine; Visit Provider Internal Medicine
DX: R30.0 Dysuria (principal); E78.00 Pure hypercholesterolemia, unspecified; D64.9 Anemia, unspecified
CPT/HCPCS: 36415; 80053; 80061; 81003; 84443; 85025

== ENCOUNTER 2025-09-04 14:08 | Outpatient (AMB) | payer OTHER, SELFPAY ==
[2025-09-04 14:10] VITALS: BP 116/50; PULSE 66; O2SAT 96; BMI 34.1
--- NOTE | 2025-09-04 14:10 | A.OFFPC_ITS ---
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 Accompanied by: Self / Same As Patient Allergies Seasonal Allergies Allergy (Verified 09/04/25 14:48) Cough Medication List - Last Reconciled 09/04/25 by Gilmar Jacobs MD atorvastatin 10 mg PO BEDTIME budesonide 32 mcg/actuation 1 spray intranasal QAM [CPAP device and all related supplies As directed] meclizine 25 mg PO DAILY PRN omeprazole 20 mg PO BID 30 days Tobacco use date assessed: 09/04/25 Dental Screening Dental Screen Date: 09/04/25 Did you have a dental visit in the last 12 months?: Yes Did you have a dental problem in the last 6 months where you did not have access to dental care?: No Was dental information given to patient?: Patient has dentist HPI follow up HPI Details Patient comes in today for his follow up visit States that he feels okay He denies any headaches or dizziness Denies any chest pains, no SOB No nausea/vomiting, no abdominal pain - states that his previous LLQ abdominal pain has completely resolved and has not bothered him in a few months now No change in bowel habits noted States that he was in [place] for a couple of weeks last month and would not be surprised if his cholesterol levels are a little higher than before He had his follow up labs done a couple of weeks ago - to discuss his results Adds that he already got his flu shot at his local pharmacy recently [facility] Medical History Allergic rhinitis Mixed hyperlipidemia Obesity (BMI 30-39.9) Vitamin D deficiency Obstructive sleep apnea Lumbar spondylosis Hypertriglyceridemia Surgical History Hx of colonoscopy Family History Father Diabetes mellitus Hypertension Mother Cancer Social History Household Members: Spouse Housing: House Alcohol intake: never Patient Tobacco Use Status: Former Tobacco user Tobacco use type: Cigarette e-Cigarette/Vaping Use: Never Used service: No Current occupational status: employed Current occupational exposures/hazards: No Sexual orientation: Straight/Heterosexual Gender identity: Male Cognitive needs: No Hearing needs: No Vision needs: No Questionnaire PHQ-9 Over the last 2 weeks, how often have you been bothered by any of the following problems? 1. Little interest or pleasure in doing things: not at all 2. Feeling down, depressed, or hopeless: not at all 3. Trouble falling or staying asleep, or sleeping too much: not at all 4. Feeling tired or having little energy: not at all 5. Poor appetite or overeating: not at all 6. Feeling bad about yourself - or that you are a failure or have let yourself or your family down: not at all 7. Trouble concentrating on things, such as reading the newspaper or watching television: not at all 8. Moving or speaking so slowly that other people could have noticed. Or the opposite - being so fidgety or restless that you have been moving around a lot more than usual: not at all 9. Thoughts that you would be better off or of hurting yourself in some way : not at all Total score: 0 Depression Screening Interpretation: Negative Depression Screening Done: Yes 62511 - PHQ-9 Billing: Yes Source: Developed by Drs. Angus Hardy, Johanna Boswell, Neto Bear and colleagues, with an educational jacques from [employer]. Thrive Questionnaire Date Thrive assessed: 09/04/25 I am a: Patient What is your living situation today?: I have a steady place to live Within the past 12 months, did the food you bought not last and you didn't have the money to get more?: Never true Within the past 12 months, did you worry whether your food would run out before you got money to buy more?: Never true Do you have trouble paying for medicines?: No Do you have trouble getting transportation to medical appointments?: No Do you have trouble paying your heating and electricity bill?: No Do you have trouble taking care of your child, family member or friend?: No Do you have trouble with day-to-day activities such as bathing, preparing meals, shopping, managing finances, etc.?: No Are you currently unemployed and looking for a job?: No Are you interested in more education?: No Please select the resources that you would like help with: None Currently or been in a relationship where the following occur: No concerns reported THRIVE Score: 0 AUDIT C Alcohol Use Questionnaire (AUDIT-C) 1. How often do you have a drink containing alcohol?: Never 3. How often do you have six or more drinks on one occasion?: Never Total Score: 0 Score Reviewed/Action Taken: Yes RADHA-7 AMB Questionnaire RADHA-7 Date RADHA - 7 assessed: 09/04/25 Feeling nervous, anxious, or on edge: 0 = Not at all Not being able to stop or control worryin = Not at all Worrying too much about different things: 0 = Not at all Trouble relaxin = Not at all Being so restless that it is hard to sit still: 0 = Not at all Becoming easily annoyed or irritable: 0 = Not at all Feeling afraid as if something awful might happen: 0 = Not at all Total RADHA-7 score (0-4 normal; 5-9 mild; 10-14 moderate; 15-21 severe): 0 Source: Developed by Drs. Angus Hardy, Johanna Boswell, Neto Bear and colleagues, with an educational jacques from [employer]. Review of Systems Const Denies chills, Denies fatigue, Denies fever(s) and Denies headache(s) ENT Denies dysphagia, Denies dizziness, Denies otalgia, Denies headache(s), Denies neck pain, Denies odynophagia and Denies sore throat Card Denies chest pain, Denies palpitations and Denies dyspnea Resp Denies chest congestion, Denies cough and Denies dyspnea GI Denies abdominal pain, Denies constipation, Denies dysphagia, Denies heartburn, Denies diarrhea, Denies nausea, Denies odynophagia and Denies vomiting Denies difficulty urinating, Denies dysuria, Denies nocturia and Denies urinary frequency Musc Reports back pain (over the lower back - chronic), Denies arthralgias, Denies neck pain and Reports radiating pain into limb (into the left thigh at times, mostly mild) Skin/Breast Denies rash Neuro Denies dizziness and Denies headache(s) Endo Denies fatigue and Denies palpitations Physical exam (Primary Care) Vital Signs: Last Vital Signs Pulse 66 09/04/25 14:10 BP 116/50 L 09/04/25 14:10 Pulse Ox 96 09/04/25 14:10 Oxygen Delivery Method Room Air 09/04/25 14:10 BMI result Body Mass Index 34.1 Tobacco/Smoking Status: Tobacco use Status Tobacco use date assessed 09/04/25 09/04/25 14:11 Patient Tobacco Use Status Former Tobacco user 09/04/25 14:11 Tobacco use type Cigarette 09/04/25 14:11 e-Cigarette/Vaping Use Never Used 09/04/25 14:11 PHQ-9: PHQ-9 Score PHQ-9: Total score 0 09/04/25 14:30 Depression Screening Interpretation: Negative Thrive Assessment: Date of Thrive Assessment Date Thrive assessed 09/04/25 09/04/25 14:11 Currently or been in a relationship where the following occur: No concerns reported Const General: no acute distress and alert HENMT Ears: TM's normal bilaterally and EAC's normal Throat: Yes posterior oropharynx normal and Yes tonsils normal (no TP congestion) Neck Neck: Yes supple and No lymphadenopathy Thyroid: Thyroid normal Resp Auscultation: clear to auscultation bilaterally, no rales and no wheezes Cardio Rate: regular rate Rhythm: regular rhythm Heart sounds: no murmurs GI Palpation (GI): Soft to palpation and nontender Auscultation: normal bowel sounds General: Yes no CVA tenderness Back/Spine/Pelvis Back: no CVA tenderness Thoracic/Lumbar Spine: lumbar spinal tenderness (mild) Skin Rashes: no rashes Extrem General: Yes no clubbing, cyanosis or edema Results Reviewed Results Reviewed: Laboratory Tests 08/24/25 08/24/25 07:33 07:38 WBC 5.4 Hgb 13.9 L Hct 42.8 Plt Count 266 Sodium 140 Potassium 4.2 Creatinine 0.90 Estimated GFR > 60 Fasting Glucose 101 H Calcium 9.2 AST 40 H ALT 49 H Triglycerides 217 H Cholesterol 190 LDL Cholesterol, Calc 105 H HDL Cholesterol 42 TSH 2.72 Ur Specific [place] 1.020 Urine Protein Negative Urine Glucose (UA) Negative Urine Blood Negative Urine Nitrite Negative Ur Leukocyte Esterase Negative Coding Level of Care Code Est Pt Level 4 (98293) Diagnoses Mixed hyperlipidemia E78.2 Obstructive sleep apnea G47.33 Lumbar degenerative disc disease M51.369 Elevated LFTs R79.89 Anemia, normocytic normochromic D64.9 Constipation, unspecified constipation type K59.00 Constipation type: unspecified constipation type Allergic rhinitis, unspecified seasonality, unspecified trigger J30.9 Allergic rhinitis trigger: unspecified Allergic rhinitis seasonality: unspecified Vitamin D deficiency E55.9 Primary osteoarthritis of left knee M17.12 Obesity (BMI 30-39.9) E66.9 Additional Codes PHQ-9 - 07767 - PHQ-9 Billing: Yes ([id number]) Assessment & Plan Assessment & Plan (1) Mixed hyperlipidemia: Code(s): E78.2 - Mixed hyperlipidemia Category: Medical Plan: Results of his labs done a couple of weeks ago reviewed and discussed with patient - his cholesterol levels have increased slightly from previous Reinforced low cholesterol diet Continue Atorvastatin 10 mg QD Will have patient recheck his labs and fasting lipids in 4 months for follow up (2) Obstructive sleep apnea: Code(s): G47.33 - Obstructive sleep apnea (adult) (pediatric) Category: Medical Plan: Continue using his CPAP device when sleeping at night daily Patient reports that he continues to benefit from regular use of his CPAP device Follow up with Sleep Medicine as scheduled (3) Lumbar degenerative disc disease: Code(s): M51.369 - Other intervertebral disc degeneration, lumbar region without mention of lumbar back pain or lower extremity pain Category: Medical Plan: Reinforced activity and weight lifting restrictions Lumbar spine x-rays done back in 2020 revealed (+) moderate degenerative disc changes T12-L1 similar to his findings in 2017, borderline disc narrowing at L4- L5 and probable mild facet degeneration at L5-S1 His insurance has denied recent attempts to send him for an MRI of the lumbar spine for further evaluation and as his symptoms seem to have stabilized recently, will hold off on any other imaging studies at this time (4) Elevated LFTs: Code(s): R79.89 - Other specified abnormal findings of blood chemistry Category: Medical Plan: His LFTs are elevated on his recent labs, likely related to his weight He also admits to drinking some beers regularly / daily while he was in [place] last month but is no longer drinking now that he is back home Will continue to monitor his LFTs regularly (5) Anemia, normocytic normochromic: Code(s): D64.9 - Anemia, unspecified Category: Medical Plan: Patient has chronic anemia on his labs over the last few years He has no RBC microcytosis or hypochromia His was sent for anemia workups by GI a few months ago - his iron levels were normal and vitamin B12 level was normal Hemoglobin electrophoresis was also normal He was referred to and seen by hematology recently and was advised to just continue monitoring his CBC regularly (6) Constipation: Code(s): K59.00 - Constipation, unspecified Category: Medical Qualifiers: Constipation type: unspecified constipation type Qualified Code(s): K59.00 - Constipation, unspecified Plan: Patient is again encouraged to continue to increase his oral fluid and dietary fiber intake His colonoscopy done on 10/09/2024 came out normal except for (+) tubular adenoma and (+) external and internal hemorrhoids (7) Allergic rhinitis: Code(s): J30.9 - Allergic rhinitis, unspecified Category: Medical Qualifiers: Allergic rhinitis trigger: unspecified Allergic rhinitis seasonality: unspecified Qualified Code(s): J30.9 - Allergic rhinitis, unspecified Plan: Continue Budesonide 32 mcg nasal spray QD PRN (8) Vitamin D deficiency: Code(s): E55.9 - Vitamin D deficiency, unspecified Category: Medical Plan: Continue Vitamin D3 2000 units QD (9) Primary osteoarthritis of left knee: Code(s): M17.12 - Unilateral primary osteoarthritis, left knee Category: Medical Plan: X-rays of the left knee done back in October 2022 revealed (+) minimal OA changes of the medial and patellofemoral joint space compartments; no fracture, dislocation or joint effusion is seen Continue Nabumetone 500 mg BID PRN with food for pain Will consider referring him to orthopedics for further management if his knee pain progresses (10) Obesity (BMI 30-39.9): Code(s): E66.9 - Obesity, unspecified Category: Medical Plan: Reinforced diet/exercise as tolerated/lose weight Plan Follow up in 4 months Orders: Orders Lipid Panel 4 Months E78.00 - Pure hypercholesterolemia, unspecified Complete Blood Count Auto Diff 4 Months D64.9 - Anemia, unspecified Comprehensive [place]. Panel Fast 4 Months E78.00 - Pure hypercholesterolemia, unspecified
== END 2025-09-04 15:01 | disposition home or self-care (01) ==
LOC: HO.HMCH 14:09
PROVIDERS: PCP Internal Medicine; Visit Provider Internal Medicine
DX: E78.2 Mixed hyperlipidemia (principal); G47.33 Obstructive sleep apnea (adult) (pediatric); E66.9 Obesity, unspecified; Z68.34 Body mass index [BMI] 34.0-34.9, adult; M51.369 Other intervertebral disc degeneration, lumbar region without mention of lumbar back pain or lower extremity pain; R79.89 Other specified abnormal findings of blood chemistry; D64.9 Anemia, unspecified; K59.00 Constipation, unspecified; J30.9 Allergic rhinitis, unspecified; E55.9 Vitamin D deficiency, unspecified; M17.12 Unilateral primary osteoarthritis, left knee

== ENCOUNTER → 2025-09-04 14:08 | Outpatient (BNVA) | payer OTHER, SELFPAY | PROVIDERS: PCP Internal Medicine; Visit Provider Internal Medicine | DX: R10.32 Left lower quadrant pain (principal); E78.2 Mixed hyperlipidemia; G47.33 Obstructive sleep apnea (adult) (pediatric); M51.369 Other intervertebral disc degeneration, lumbar region without mention of lumbar back pain or lower extremity pain; R79.89 Other specified abnormal findings of blood chemistry; D64.9 Anemia, unspecified; K59.00 Constipation, unspecified; J30.9 Allergic rhinitis, unspecified; E55.9 Vitamin D deficiency, unspecified; M17.12 Unilateral primary osteoarthritis, left knee; E66.9 Obesity, unspecified; E78.00 Pure hypercholesterolemia, unspecified; Z68.34 Body mass index [BMI] 34.0-34.9, adult | CPT/HCPCS: 96127 ==